=== PATIENT | female | born 1935 | race Caucasian/White ===

== ENCOUNTER 2016-11-30 21:14 | Emergency (ER) | payer MEDICARE, OTHER ==
[2016-11-30 21:19] VITALS: BP 153/58
[2016-11-30] MEDS ORDERED: Sodium Chloride 0.9% 10 ML Syringe FLUSH PRN ×2 (21:27→22:42)
[2016-11-30] MEDS ORDERED: Aspirin 81 MG Tab.Chew PO ONE (21:27)
--- NOTE | 2016-11-30 21:33 | EDM.PDOC ---
ED HPI GENERAL MEDICAL PROBLEM - General Chief Complaint: Chest Pain Stated Complaint: CHEST PAIN/SHORTNESS OF BREATH Time Seen by Provider: 11/30/16 21:21 Source of Information: Reports: Patient History Limitations: Reports: No Limitations - History of Present Illness INITIAL COMMENTS - FREE TEXT/NARRATIVE: The patient presents with chest pain that stated just prior to arrival. The patient was getting ready for bed when she developed some pain in her throat that radiated down into her chest and then to her left axilla. She took a nitro and the pain is better. She was short of breath with it. She did not get diaphoretic. She has a history of coronary artery disease with a stent but no [place]. She has a clogged right carotid artery. She denies any fever, chills or cough. She has no history of a DVT or PE but she has some edema to her left foot and ankle from a tendon injury. She is seeing PT for that. She has no nausea or vomiting. She has no abdominal pain. Onset: Sudden Duration: Minutes: Location: Reports: Neck, Chest, Upper Extremity, Left Quality: Reports: Other (Crushing) Severity: Moderate Improves with: Reports: None Worsens with: Reports: None Associated Symptoms: Reports: Chest Pain, Shortness of Breath. Denies: Fever/ Chills, Nausea/Vomiting Bilateral Chest Pain Score (Numeric/FACES): 2 - Related Data Allergies Allergy/AdvReac Type Severity Reaction Status Date / Time amoxicillin Allergy anaphylacti Verified 11/30/16 21:17 c prednisone AdvReac ulcer Verified 11/30/16 21:17 Home Meds: Home Meds Aspirin [Ecotrin] 81 mg PO DAILY 09/28/14 [History] Cevimeline [Evoxac] 30 mg PO BEDTIME 09/28/14 [History] Famotidine 20 mg PO DAILY 09/28/14 [History] Fenofibrate,Micronized [Fenofibrate] 134 mg PO DAILY 09/28/14 [History] Lisinopril 10 mg PO DAILY 09/28/14 [History] Lutein/Minerals/Vit A,C & E [Ocuvite] 1 tab PO BID 09/28/14 [History] Multivit-Min/FA/Lycopene/Lut [Centrum Silver] 1 tab PO DAILY 09/28/14 [History] Sutton-3 Fatty Acids [Sutton-3] 1,000 mg PO BID 09/28/14 [History] Pramipexole [Mirapex] 0.5 mg PO BEDTIME 09/28/14 [History] buPROPion [Wellbutrin SR] 100 mg PO DAILY 09/28/14 [History] Psyllium with Sucrose [Metamucil] 1 packet PO BID 08/22/15 [History] Rosuvastatin [Crestor] 20 mg PO BEDTIME 08/22/15 [History] Zolpidem [Ambien] 10 mg PO BEDTIME 08/22/15 [History] Albuterol Sulfate [Proair Hfa] 8.5 gm IH Q4HR PRN #1 hfa.aer.ad 08/29/15 [Rx] Lactobac Cmb #3/Fos/Pantethine [Probiotic & Acidophilus] 1 each PO TID #7 capsule 08/29/15 [Rx] Levofloxacin [Levaquin] 750 mg PO DAILY #5 tablet 08/29/15 [Rx] Clindamycin HCl [Cleocin] 300 mg PO TID #60 cap 07/27/16 [Rx] traMADol [Ultram] 50 mg PO Q4HR PRN #50 tablet 07/27/16 [Rx] Past Medical History HEENT History: Reports: Impaired Vision Other HEENT History: Wears glasses Cardiovascular History: Reports: High Cholesterol, Hypertension Gastrointestinal History: Reports: Gastritis, GERD [employer] History: Reports: Musculoskeletal History: Reports: Back Pain, Chronic Other Musculoskeletal History: Scoliosis Neurological History: Reports: TIA Oncologic (Cancer) History: Reports: Malignant Melanoma Dermatologic History: Reports: Melanoma - Past Surgical History Cardiovascular Surgical History: Reports: Coronary Artery Stent GI Surgical History: Reports: Appendectomy, EGD Female Surgical History: Reports: D&C Musculoskeletal Surgical History: Reports: Other (See Below) Other Musculoskeletal Surgeries/Procedures:: Spinal fusion Social & Family History - Family History Cardiac: Reports: Other (See Below) Neurological: Reports: Parkinson's - Tobacco Use Smoking Status *Q: Never Smoker Years of Tobacco use: 50 Month Tobacco Last Used: 2009 Second Hand Smoke Exposure: No - Caffeine Use Caffeine Use: Reports: None - Alcohol Use Days Per Week of Alcohol Use: 7 Number of Drinks Per Day: 2 Total Drinks Per Week: 14 - Recreational Drug Use Recreational Drug Use: No - Living Situation & Occupation Living situation: Reports: with Spouse ED ROS GENERAL - Review of Systems Review Of Systems: See Below Constitutional: Reports: No Symptoms HEENT: Reports: No Symptoms Respiratory: Reports: Shortness of Breath Cardiovascular: Reports: Chest Pain Endocrine: Reports: No Symptoms GI/Abdominal: Reports: No Symptoms : Reports: No Symptoms Musculoskeletal: Reports: No Symptoms Skin: Reports: No Symptoms ED EXAM, GENERAL - Physical Exam Exam: See Below Exam Limited By: No Limitations General Appearance: Alert, No Apparent Distress Ears: Normal External Exam Nose: Normal Inspection Head: Atraumatic, Normocephalic Neck: Normal Inspection Respiratory/Chest: No Respiratory Distress, Lungs Clear, Normal Breath Sounds Cardiovascular: Regular Rate, Rhythm, No Edema, No Murmur GI/Abdominal: Soft, Non-Tender, No Organomegaly, No Mass Back Exam: Normal Inspection Extremities: Normal Inspection EKG INTERPRETATION EKG Date: 11/30/16 Time: 21:16 Rhythm: NSR Rate (beats/min): 86 [place]: normal P-wave: present QRS: normal ST-T: normal QT: normal Course - Vital Signs Last Recorded V/S: Last Vital Signs Temp 97.8 F 11/30/16 21:17 Pulse 87 11/30/16 21:17 Resp 19 11/30/16 21:17 BP 153/58 H 11/30/16 21:17 Pulse Ox 96 11/30/16 21:17 - Orders/Labs/Meds Orders: Active Orders 24 hr Category Date Time Status Cardiac Monitoring [RC] . DIRECTED Care 11/30/16 21:27 Active EKG 12 Lead [EKG Documentation Completion] [RC] STAT Care 11/30/16 23:50 Active EKG Documentation Completion [RC] STAT Care 11/30/16 21:24 Active Oxygen Therapy [RC] PRN Care 11/30/16 21:27 Active Peripheral IV Care [RC] . DIRECTED Care 11/30/16 21:27 Active Ang Chest [CT] Stat Exams 11/30/16 22:08 Taken Chest 1V Frontal [CR] Stat Exams 11/30/16 21:27 Taken VL Duplex Lwr Ext Veins Ltd Lt [US] Stat Exams 11/30/16 22:08 Taken Sodium Chloride 0.9% [Normal Saline] 100 ml Med 11/30/16 22:45 Active IV ASDIRECTED Sodium Chloride 0.9% [Saline Flush] Med 11/30/16 21:27 Active 10 ml FLUSH ASDIRECTED PRN Sodium Chloride 0.9% [Saline Flush] Med 11/30/16 22:42 Active 10 ml FLUSH ONETIME PRN Peripheral IV Insertion Adult [OM.PC] Stat Oth 11/30/16 21:27 Ordered Medication Orders Sodium Chloride (Normal Saline) 100 mls @ 80 mls/hr IV ASDIRECTED JL Last Admin: 11/30/16 22:53 Dose: 80 mls/hr Sodium Chloride (Saline Flush) 10 ml FLUSH ASDIRECTED PRN PRN Reason: Keep Vein Open Last Admin: 11/30/16 21:32 Dose: 10 ml Sodium Chloride (Saline Flush) 10 ml FLUSH ONETIME PRN PRN Reason: IV FLUSH Last Admin: 11/30/16 22:53 Dose: 10 ml Labs: Laboratory Tests 11/30/16 11/30/16 11/30/16 Range/Units 21:25 21:25 21:25 WBC 8.20 (3.98-10.04) K/mm3 RBC 4.39 (3.98-5.22) M/mm3 Hgb 12.8 (11.2-15.7) gm/L Hct 38.7 (34.1-44.9) % MCV 88.2 (79.4-94.8) fl MCH 29.2 (25.6-32.2) pg MCHC 33.1 (32.2-35.5) g/dl RDW Std Deviation 42.9 (36.4-46.3) fL Plt Count 279 (182-369) K/mm3 MPV 9.5 (9.4-12.3) fl Neut % (Auto) 64.0 (34.0-71.1) % Lymph % (Auto) 26.1 (19.3-51.7) % Henry % (Auto) 7.9 (4.7-12.5) % Eos % (Auto) 1.3 (0.7-5.8) Baso % (Auto) 0.5 (0.1-1.2) % Neut # (Auto) 5.24 (1.56-6.13) K/mm3 Lymph # (Auto) 2.14 (1.18-3.74) K/mm3 Henry # (Auto) 0.65 H (0.24-0.36) K/mm3 Eos # (Auto) 0.11 (0.04-0.36) K/mm3 Baso # (Auto) 0.04 (0.01-0.08) K/mm3 D-Dimer, Quantitative 0.76 H (0.19-0.59) mg/L Sodium 138 (136-145) mEq/L Potassium 4.1 (3.5-5.1) mEq/L Chloride 100 (98-107) mEq/L Carbon Dioxide 27 (21-32) mEq/L Anion Gap 15.1 H (5-15) BUN 24 H (7-18) mg/dL Creatinine 1.0 (0.55-1.02) mg/dL Est Cr Clr Drug Dosing TNP Estimated GFR (MDRD) 53 (>60) mL/min BUN/Creatinine Ratio 24.0 H (14-18) Glucose 114 (83-115) mg/dL Calcium 9.4 (8.5-10.1) mg/dL Total Bilirubin 0.5 (0.2-1.0) mg/dL AST 20 (15-37) U/L ALT 31 (14-59) U/L Alkaline Phosphatase 85 (46-116) U/L Troponin I < 0.017 (0.00-0.056) ng/mL Total Protein 7.6 (6.4-8.2) g/dl Albumin 3.9 (3.4-5.0) g/dl Globulin 3.7 gm/dL Albumin/Globulin Ratio 1.1 (1-2) 12/01/16 Range/Units 00:05 WBC (3.98-10.04) K/mm3 RBC (3.98-5.22) M/mm3 Hgb (11.2-15.7) gm/L Hct (34.1-44.9) % MCV (79.4-94.8) fl MCH (25.6-32.2) pg MCHC (32.2-35.5) g/dl RDW Std Deviation (36.4-46.3) fL Plt Count (182-369) K/mm3 MPV (9.4-12.3) fl Neut % (Auto) (34.0-71.1) % Lymph % (Auto) (19.3-51.7) % Henry % (Auto) (4.7-12.5) % Eos % (Auto) (0.7-5.8) Baso % (Auto) (0.1-1.2) % Neut # (Auto) (1.56-6.13) K/mm3 Lymph # (Auto) (1.18-3.74) K/mm3 Henry # (Auto) (0.24-0.36) K/mm3 Eos # (Auto) (0.04-0.36) K/mm3 Baso # (Auto) (0.01-0.08) K/mm3 D-Dimer, Quantitative (0.19-0.59) mg/L Sodium (136-145) mEq/L Potassium (3.5-5.1) mEq/L Chloride (98-107) mEq/L Carbon Dioxide (21-32) mEq/L Anion Gap (5-15) BUN (7-18) mg/dL Creatinine (0.55-1.02) mg/dL Est Cr Clr Drug Dosing Estimated GFR (MDRD) (>60) mL/min BUN/Creatinine Ratio (14-18) Glucose (83-115) mg/dL Calcium (8.5-10.1) mg/dL Total Bilirubin (0.2-1.0) mg/dL AST (15-37) U/L ALT (14-59) U/L Alkaline Phosphatase (46-116) U/L Troponin I < 0.017 (0.00-0.056) ng/mL Total Protein (6.4-8.2) g/dl Albumin (3.4-5.0) g/dl Globulin gm/dL Albumin/Globulin Ratio (1-2) Meds: Medications Generic Name Dose Route Start Last Admin Trade Name Freq PRN Reason Stop Dose Admin Sodium Chloride 100 mls @ 80 mls/hr 11/30/16 22:45 11/30/16 22:53 Normal Saline IV 80 mls/hr ASDIRECTED JL Administration Sodium Chloride 10 ml 11/30/16 21:27 11/30/16 21:32 Saline Flush FLUSH 10 ml ASDIRECTED PRN Administration Keep Vein Open Sodium Chloride 10 ml 11/30/16 22:42 11/30/16 22:53 Saline Flush FLUSH 10 ml ONETIME PRN Administration IV FLUSH Discontinued Medications Generic Name Dose Route Start Last Admin Trade Name Ellen PRN Reason Stop Dose Admin Aspirin 324 mg 11/30/16 21:27 11/30/16 21:31 Aspirin PO 11/30/16 21:28 324 mg ONETIME ONE Administration Iopamidol 100 ml 11/30/16 22:42 11/30/16 22:52 Isovue-370 (76%) IVPUSH 11/30/16 22:43 100 ml ONETIME ONE Administration - Re-Assessments/Exams Free Text/Narrative Re-Assessment/Exam: 11/30/16 21:33 I ordered an IV saline lock, EKG, CXR, labs and aspirin. Her EKG shows a NSR with no acute changes. 12/01/16 00:27 Her CXR looks good. Her CBC was negative. Her D-dimer was elevated at 0.76. Her creatinine was normal at 1.1. Her troponin is negative. Her chest CT shows no evidence of PE, moderate severity emphysematous changes, right upper lobe nodularity is stable, atherosclerotic vascular disease, minimal basilar atelectasis and scoliosis. Her US shoes no evidence of DVT. I did a repeat EKG and it shows no acute changes. I am waiting for the repeat troponin. 12/01/16 00:44 Her repeat troponin is negative. Departure - Departure Time of Disposition: 00:40 Disposition: Home, Self-Care 01 Condition: good Clinical Impression: Atypical chest pain Referrals: Monster Garcia MD [Primary Care Provider] - Forms: ED Department Discharge Additional Instructions: Take your medications as prescribed. Please return if you are worse. - My Orders Last 24 Hours: My Active Orders 11/30/16 21:24 EKG Documentation Completion [RC] STAT 11/30/16 21:27 Cardiac Monitoring [RC] . DIRECTED Oxygen Therapy [RC] PRN Peripheral IV Care [RC] . DIRECTED Chest 1V Frontal [CR] Stat Sodium Chloride 0.9% [Saline Flush] 10 ml FLUSH ASDIRECTED PRN Peripheral IV Insertion Adult [OM.PC] Stat 11/30/16 22:08 Ang Chest [CT] Stat VL Duplex Lwr Ext Veins Ltd Lt [US] Stat 11/30/16 22:42 Sodium Chloride 0.9% [Saline Flush] 10 ml FLUSH ONETIME PRN 11/30/16 22:45 Sodium Chloride 0.9% [Normal Saline] 100 ml IV ASDIRECTED 11/30/16 23:50 EKG 12 Lead [EKG Documentation Completion] [RC] STAT - Assessment/Plan Last 24 Hours: My Active Orders 11/30/16 21:24 EKG Documentation Completion [RC] STAT 11/30/16 21:27 Cardiac Monitoring [RC] . DIRECTED Oxygen Therapy [RC] PRN Peripheral IV Care [RC] . DIRECTED Chest 1V Frontal [CR] Stat Sodium Chloride 0.9% [Saline Flush] 10 ml FLUSH ASDIRECTED PRN Peripheral IV Insertion Adult [OM.PC] Stat 11/30/16 22:08 Ang Chest [CT] Stat VL Duplex Lwr Ext Veins Ltd Lt [US] Stat 11/30/16 22:42 Sodium Chloride 0.9% [Saline Flush] 10 ml FLUSH ONETIME PRN 11/30/16 22:45 Sodium Chloride 0.9% [Normal Saline] 100 ml IV ASDIRECTED 11/30/16 23:50 EKG 12 Lead [EKG Documentation Completion] [RC] STAT
[2016-11-30] MEDS ORDERED: Iopamidol 755 Mg/ML 100 ML Bottle IVPUSH ONE (22:42)
[2016-11-30] MEDS ORDERED: Sodium Chloride 0.9% 100 ML IV SCH (22:45)
--- NOTE | 2016-12-01 09:05 | CT ---
CT chest Technique: Multiple axial sections through the chest are obtained. Intravenous contrast was utilized. Study has been performed as a pulmonary angiogram protocol. Comparison: Previous chest CT also performed as a pulmonary angiogram protocol dated 08/26 15. Findings: Pulmonary arteries are well-opacified. No filling defects are seen to indicate pulmonary embolism. Bilateral breast prosthesis are seen. Left breast prosthesis appears lobulated and likely is partially collapsed which is a stable finding from prior CT exam. Coronary artery calcification is seen. Low-density lesion seen within the right kidney most likely representing a cyst measuring 1.7 cm in size. Atherosclerotic calcification noted within the aorta. No mediastinal or hilar adenopathy is seen. No axillary adenopathy is identified. Diffuse emphysematous change is seen. Focal parenchymal density which appears to have slightly branching component seen within the right middle lobe. Small calcification presumably due to granuloma is present in this area. This finding is partially seen on prior study but appears to be increased in size currently. Given its branching pattern this is most likely due to focal mucoid impaction with mild associated bronchial dilatation. Lungs otherwise are clear. Bone window settings were reviewed which show scattered degenerative change within the spine. Impression: 1. Slight area of increased density within the right middle lobe. As mentioned above, this is most likely due to focal mucoid impaction causing bronchial dilatation. This finding is partially seen but has increased in size on current exam. 2. No findings of pulmonary embolism. 3. Severe emphysematous change. 4. Other incidental findings as described above. Diagnostic code #3 I agree with preliminary report issued by [employer] ([facility] preliminary report dictated on 12/01/16, 12:07 AM Central Time)
--- NOTE | 2016-12-01 09:05 | CR ---
Chest: Portable view of the chest was obtained. Comparison: Previous chest x-ray of 08/28/15. Heart size slightly prominent but accentuated from portable technique. Tortuous thoracic aorta is noted. Lungs are clear. Bony structures are osteopenic. Surgical clips are noted at the base of the neck. Impression: 1. Findings as noted above. Nothing acute is identified on portable chest x-ray. Diagnostic code #2
--- NOTE | 2016-12-01 09:05 | US ---
Left lower extremity deep venous ultrasound: Duplex and color flow imaging was obtained of the left common femoral, greater saphenous, superficial femoral, popliteal, posterior tibial and peroneal veins. Right common femoral vein was also evaluated. Small amount of edema noted within the lower leg soft tissues. Normal phasic flow, augmentation and compression is seen. Impression: 1. Minimal subcutaneous edema. 2. No findings of deep venous thrombosis are seen within the left lower extremity or within the right common femoral vein. Diagnostic code #2 I agree with preliminary report issued by [facility] ([facility] preliminary report dictated on 12/01/16, 12:44 AM Central Time)
== END 2016-12-01 00:55 | disposition home or self-care (01) ==
LOC: JD.ED 21:14
DX: R07.89 Other chest pain (principal); I10 Essential (primary) hypertension; E78.00 Pure hypercholesterolemia, unspecified; K21.9 Gastro-esophageal reflux disease without esophagitis; I25.10 Atherosclerotic heart disease of native coronary artery without angina pectoris; Z86.73 Personal history of transient ischemic attack (TIA), and cerebral infarction without residual deficits; Z95.5 Presence of coronary angioplasty implant and graft; Z90.49 Acquired absence of other specified parts of digestive tract; Z98.1 Arthrodesis status; Z88.1 Allergy status to other antibiotic agents; Z88.8 Allergy status to other drugs, medicaments and biological substances; Z79.82 Long term (current) use of aspirin; Z79.899 Other long term (current) drug therapy; Z85.820 Personal history of malignant melanoma of skin
CPT/HCPCS: 36415; 71010; 71275; 80053; 84484; 85025; 85379; 93005; 93971; 99285; A9270; J7030; J7050; Q9967; 99284

== ENCOUNTER 2018-09-28 03:10 | Inpatient (IN) | payer MEDICARE, OTHER ==
[2018-09-28] MEDS ORDERED: Sodium Chloride 0.9% 10 ML Syringe FLUSH PRN (03:27)
[2018-09-28] MEDS ORDERED: Albuterol/Ipratropium 3.0-0.5 MG/3 ML Neb Soln NEB ONE ×2 (03:28→05:57)
[2018-09-28] MEDS ORDERED: Magnesium Sulfate/Water 2 GM in Premix Bag 1 BAG IV ONE (03:29)
[2018-09-28] MEDS ORDERED: cefTRIAXone 2 GM in Sodium Chloride 0.9% 100 ML IV ONE (03:30)
--- NOTE | 2018-09-28 06:03 | EDM.PDOC ---
ED HPI GENERAL MEDICAL PROBLEM - General Chief Complaint: Respiratory Problem Stated Complaint: SHORT OF BREATH Time Seen by Provider: 09/28/18 03:23 Source of Information: Reports: Patient, Family History Limitations: Reports: No Limitations - History of Present Illness INITIAL COMMENTS - FREE TEXT/NARRATIVE: The patient presents with a cough and shortness of breath. She says she was down in [place] for 2 weeks. She flew home Thursday and on the she started having a slight sore throat. Then on Thursday she started having a cough and her ears were plugged. She then said her eyes hurt. This morning her cough got worse and she was more short of breath. When she arrived here her oxygen saturations were 86% on room air. She has a history of COPD. She still smokes a couple cigarettes per day. She has chest tightness. She has no abdominal pain, nausea or vomiting. She has no pain or edema in her legs. She has no history of DVT or PE. She has a history of a GI bleed when taking prednisone. She does not want any steroids either orally or through the IV. Onset: Gradual Duration: Day(s): Location: Reports: Chest Quality: Reports: Other (Tightness) Severity: Mild Improves with: Reports: None Worsens with: Reports: None Associated Symptoms: Reports: Chest Pain, Cough, Fever/Chills, Shortness of Breath. Denies: Headaches, Nausea/Vomiting - Related Data Allergies Allergy/AdvReac Type Severity Reaction Status Date / Time amoxicillin Allergy anaphylacti Verified 09/28/18 03:23 c prednisone AdvReac ulcer Verified 09/28/18 03:23 Home Meds: Home Meds Aspirin [Ecotrin] 81 mg PO DAILY 09/28/14 [History] Cevimeline [Evoxac] 30 mg PO BEDTIME 09/28/14 [History] Famotidine 20 mg PO DAILY 09/28/14 [History] Fenofibrate,Micronized [Fenofibrate] 134 mg PO DAILY 09/28/14 [History] Lisinopril 10 mg PO DAILY 09/28/14 [History] Lutein/Minerals/Vit A,C & E [Ocuvite] 1 tab PO BID 09/28/14 [History] Multivit-Min/FA/Lycopene/Lut [Centrum Silver] 1 tab PO DAILY 09/28/14 [History] Euclid-3 Fatty Acids [Euclid-3] 1,000 mg PO BID 09/28/14 [History] Pramipexole [Mirapex] 0.5 mg PO BEDTIME 09/28/14 [History] Psyllium with Sucrose [Metamucil] 1 packet PO BID 08/22/15 [History] Albuterol Sulfate [Proair Hfa] 8.5 gm IH Q4HR PRN #1 hfa.aer.ad 08/29/15 [Rx] Rosuvastatin Calcium 40 mg PO DAILY 01/11/18 [History] Zolpidem Tartrate 10 mg PO BEDTIME 01/11/18 [History] Citalopram Hydrobromide [Celexa] 20 mg PO DAILY 09/28/18 [History] Denosumab [Prolia] 1 ml SQ ASDIRECTED 09/28/18 [History] buPROPion [Wellbutrin] 100 mg PO DAILY 09/28/18 [History] hydroCHLOROthiazide [Hydrochlorothiazide] 25 mg PO DAILY 09/28/18 [History] traMADol [Ultram] 50 mg PO ASDIRECTED PRN 09/28/18 [History] Past Medical History HEENT History: Reports: Cataract, Impaired Vision Other HEENT History: Wears glasses Cardiovascular History: Reports: High Cholesterol, Hypertension Respiratory History: Reports: COPD Gastrointestinal History: Reports: Gastritis, GERD [employer]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: Musculoskeletal History: Reports: Back Pain, Chronic Other Musculoskeletal History: Scoliosis Neurological History: Reports: TIA Oncologic (Cancer) History: Reports: Malignant Melanoma Dermatologic History: Reports: Melanoma - Past Surgical History HEENT Surgical History: Reports: Cataract Surgery Cardiovascular Surgical History: Reports: Coronary Artery Stent GI Surgical History: Reports: Appendectomy, EGD Female Surgical History: Reports: D&C Musculoskeletal Surgical History: Reports: Other (See Below) Other Musculoskeletal Surgeries/Procedures:: Spinal fusion Social & Family History - Family History Cardiac: Reports: Other (See Below) Neurological: Reports: Parkinson's - Tobacco Use Smoking Status *Q: Current Every Day Smoker Years of Tobacco use: 50 Packs/Tins Daily: 0.1 - Caffeine Use Caffeine Use: Reports: None - Alcohol Use Days Per Week of Alcohol Use: 7 Number of Drinks Per Day: 1 Total Drinks Per Week: 7 - Recreational Drug Use Recreational Drug Use: No - Living Situation & Occupation Living situation: Reports: with Spouse ED ROS GENERAL - Review of Systems Review Of Systems: See Below Constitutional: Reports: Fever, Chills HEENT: Reports: Ear Pain, Throat Pain Respiratory: Reports: Shortness of Breath, Wheezing, Cough Cardiovascular: Reports: Chest Pain Endocrine: Reports: No Symptoms GI/Abdominal: Reports: No Symptoms : Reports: No Symptoms ED EXAM, GENERAL - Physical Exam Exam: See Below Exam Limited By: No Limitations General Appearance: Alert, No Apparent Distress Ears: Normal External Exam Nose: Normal Inspection Throat/Mouth: Normal Inspection Head: Atraumatic, Normocephalic Neck: Normal Inspection Respiratory/Chest: Decreased Breath Sounds, Wheezing Cardiovascular: Regular Rate, Rhythm, No Edema, No Murmur GI/Abdominal: Soft, Non-Tender, No Organomegaly, No Mass Back Exam: Normal Inspection Extremities: Normal Inspection Neurological: Alert, Oriented, No Motor/Sensory Deficits Course - Vital Signs Last Recorded V/S: Last Vital Signs Temp 98.7 F 09/28/18 03:23 Pulse 96 09/28/18 03:23 Resp 20 09/28/18 03:23 BP 172/74 H 09/28/18 03:23 Pulse Ox 92 L 09/28/18 05:57 - Orders/Labs/Meds Orders: Active Orders 24 hr Category Date Time Status Cardiac Monitoring [RC] . DIRECTED Care 09/28/18 03:28 Active Oxygen Therapy [RC] PRN Care 09/28/18 03:28 Active Peripheral IV Care [RC] . DIRECTED Care 09/28/18 03:28 Active RT Aerosol Therapy [RC] ASDIRECTED Care 09/28/18 03:28 Active RT Aerosol Therapy [RC] ASDIRECTED Care 09/28/18 05:57 Active ABG [BLOOD GAS ARTERIAL] [BG] Stat Lab 09/28/18 06:51 Ordered CULTURE BLOOD [BC] Stat Lab 09/28/18 03:50 Received CULTURE BLOOD [BC] Stat Lab 09/28/18 04:00 Received Sodium Chloride 0.9% [Saline Flush] Med 09/28/18 03:27 Active 10 ml FLUSH ASDIRECTED PRN Blood Culture x2 Reflex Set [OM.PC] Stat Oth 09/28/18 03:28 Ordered Peripheral IV Insertion Adult [OM.PC] Stat Oth 09/28/18 03:27 Ordered Medication Orders Sodium Chloride (Saline Flush) 10 ml FLUSH ASDIRECTED PRN PRN Reason: Keep Vein Open Labs: Laboratory Tests 09/28/18 09/28/18 09/28/18 Range/Units 03:50 03:50 03:50 WBC 7.82 (3.98-10.04) K/mm3 RBC 3.92 L (3.98-5.22) M/mm3 Hgb 11.6 (11.2-15.7) gm/L Hct 35.3 (34.1-44.9) % MCV 90.1 (79.4-94.8) fl MCH 29.6 (25.6-32.2) pg MCHC 32.9 (32.2-35.5) g/dl RDW Std Deviation 40.9 (36.4-46.3) fL Plt Count 204 (182-369) K/mm3 MPV 9.4 (9.4-12.3) fl Neut % (Auto) 83.3 H (34.0-71.1) % Lymph % (Auto) 9.3 L (19.3-51.7) % [place] % (Auto) 6.5 (4.7-12.5) % Eos % (Auto) 0.5 L (0.7-5.8) Baso % (Auto) 0.1 (0.1-1.2) % Neut # (Auto) 6.51 H (1.56-6.13) K/mm3 Lymph # (Auto) 0.73 L (1.18-3.74) K/mm3 [place] # (Auto) 0.51 H (0.24-0.36) K/mm3 Eos # (Auto) 0.04 (0.04-0.36) K/mm3 Baso # (Auto) 0.01 (0.01-0.08) K/mm3 Manual Slide Review Normal smear Sodium 138 (136-145) mEq/L Potassium 3.8 (3.5-5.1) mEq/L Chloride 103 (98-107) mEq/L Carbon Dioxide 25 (21-32) mEq/L Anion Gap 13.8 (5-15) BUN 16 (7-18) mg/dL Creatinine 0.9 (0.55-1.02) mg/dL Est Cr Clr Drug Dosing TNP Estimated GFR (MDRD) > 60 (>60) mL/min BUN/Creatinine Ratio 17.8 (14-18) Glucose 114 (83-115) mg/dL Lactic Acid 0.8 (0.4-2.0) mmol/L Calcium 8.9 (8.5-10.1) mg/dL Magnesium 2.0 (1.8-2.4) mg/dl Total Bilirubin 0.4 (0.2-1.0) mg/dL AST 22 (15-37) U/L ALT 27 (14-59) U/L Alkaline Phosphatase 84 (46-116) U/L Total Protein 6.6 (6.4-8.2) g/dl Albumin 3.3 L (3.4-5.0) g/dl Globulin 3.3 gm/dL Albumin/Globulin Ratio 1.0 (1-2) Meds: Medications Generic Name Dose Route Start Last Admin Trade Name Freq PRN Reason Stop Dose Admin Sodium Chloride 10 ml 09/28/18 03:27 Saline Flush FLUSH ASDIRECTED PRN Keep Vein Open Discontinued Medications Generic Name Dose Route Start Last Admin Trade Name Freq PRN Reason Stop Dose Admin Albuterol/Ipratropium 3 ml 09/28/18 03:28 09/28/18 03:38 Duoneb 3.0-0.5 Mg/3 Ml NEB 09/28/18 03:29 3 ml ONETIME ONE Administration Albuterol/Ipratropium 3 ml 09/28/18 05:57 09/28/18 06:03 Duoneb 3.0-0.5 Mg/3 Ml NEB 09/28/18 05:58 3 ml ONETIME ONE Administration Magnesium Sulfate 2 gm/ Premix 50 mls @ 25 mls/hr 09/28/18 03:29 09/28/18 03: 54 IV 09/28/18 05:28 25 mls/hr ONETIME ONE Administration Ceftriaxone Sodium 2 gm/ 100 mls @ 200 mls/hr 09/28/18 03:30 09/28/18 05:55 Sodium Chloride IV 09/28/18 03:59 200 mls/hr ONETIME ONE Administration - Re-Assessments/Exams Free Text/Narrative Re-Assessment/Exam: 09/28/18 06:03 I ordered an IV saline lock, oxygen, duoneb, magnesium 2 grams IV, CXR, blood cultures, labs and a lactic acid. The patient did not want any steroids either orally or IV. Her CXR shows a right middle lobe infiltrate. Her influenza was negative. Her CBC looks good along with her CMP. Her lactic acid was normal. I ordered rocephin 2 grams IV. 09/28/18 06:05 She feels better but she still has wheezing. I have ordered another duoneb. I will need to admit the patient. 09/28/18 06:55 She wanted an ABG and wanted me to call Joel. I also checked on the patient' s code status and she is DNR/DNI. 09/28/18 07:[address] Manley and he agreed to the admission. Departure - Departure Time of Disposition: 07:15 Disposition: Admitted As Inpatient 68 Condition: Fair Clinical Impression: Hypoxia Pneumonia Qualifiers: Pneumonia type: due to unspecified organism Laterality: right Lung location: middle lobe of lung Qualified Code(s): J18.1 - Lobar pneumonia, unspecified organism COPD (chronic obstructive pulmonary disease) Qualifiers: COPD type: unspecified COPD Qualified Code(s): J44.9 - Chronic obstructive pulmonary disease, unspecified - Discharge Information Referrals: Monster Garcia MD [Primary Care Provider] - Forms: ED Department Discharge - My Orders Last 24 Hours: My Active Orders 09/28/18 03:27 Sodium Chloride 0.9% [Saline Flush] 10 ml FLUSH ASDIRECTED PRN Peripheral IV Insertion Adult [OM.PC] Stat 09/28/18 03:28 Cardiac Monitoring [RC] . DIRECTED Oxygen Therapy [RC] PRN Peripheral IV Care [RC] . DIRECTED RT Aerosol Therapy [RC] ASDIRECTED Blood Culture x2 Reflex Set [OM.PC] Stat 09/28/18 03:50 CULTURE BLOOD [BC] Stat 09/28/18 04:00 CULTURE BLOOD [BC] Stat 09/28/18 05:57 RT Aerosol Therapy [RC] ASDIRECTED 09/28/18 06:51 ABG [BLOOD GAS ARTERIAL] [BG] Stat - Assessment/Plan Last 24 Hours: My Active Orders 09/28/18 03:27 Sodium Chloride 0.9% [Saline Flush] 10 ml FLUSH ASDIRECTED PRN Peripheral IV Insertion Adult [OM.PC] Stat 09/28/18 03:28 Cardiac Monitoring [RC] . DIRECTED Oxygen Therapy [RC] PRN Peripheral IV Care [RC] . DIRECTED RT Aerosol Therapy [RC] ASDIRECTED Blood Culture x2 Reflex Set [OM.PC] Stat 09/28/18 03:50 CULTURE BLOOD [BC] Stat 09/28/18 04:00 CULTURE BLOOD [BC] Stat 09/28/18 05:57 RT Aerosol Therapy [RC] ASDIRECTED 09/28/18 06:51 ABG [BLOOD GAS ARTERIAL] [BG] Stat
--- NOTE | 2018-09-28 07:02 | CR ---
Chest: Portable view of the chest is obtained. Comparison: Prior chest x-ray of 11/30/16. Heart size is normal. Tortuous thoracic aorta is seen. Bronchial wall thickening is noted within the right lower lung. Lungs otherwise are clear. Bony structures are grossly intact. Impression: 1. Bronchial wall thickening within the right lower lung. Findings could be chronic if patient has no acute symptoms. 2. Other portions of the portable chest x-ray showed nothing acute. Diagnostic code #3
[2018-09-28] MEDS ORDERED: cefTRIAXone 2 GM Vial IVPUSH SCH (08:45)
[2018-09-28] MEDS: Albuterol/Ipratropium 3.0-0.5 MG/3 ML Neb Soln NEB SCH ×3 (09:23→21:17)
[2018-09-28] MEDS: methylPREDNISolone Sodium Succinate 40 MG/1 ML SDV IVPUSH SCH ×3 (10:21→20:14)
[2018-09-28] MEDS ORDERED: Albuterol 6.7 GM Inhaler INH PRN (11:21)
[2018-09-28] MEDS: Lisinopril 10 MG Tab PO SCH (12:42)
[2018-09-28] MEDS: Hydrochlorothiazide 25 MG Tab PO SCH (12:42)
[2018-09-28] MEDS ORDERED: MORPHINE PAIN PUMP SCH (13:15)
--- NOTE | 2018-09-28 13:19 | PCM.HP ---
H&P History of Present Illness - General Date of Service: 09/28/18 Admit Problem/Dx: Admission Diagnosis/Problem Admission Diagnosis/Problem Pneumonia Source of Information: Patient - History of Present Illness Initial Comments - Free Text/Narative: Patient presented to the emergency room early this morning complaining of cough and shortness of breath. This patient with a history of COPD started developing a sore throat when flying home from [place] this last weekend. She had spent 2 weeks in [place] with an old friend. She states that on Thursday her ears felt plugged and her eyes felt plugged. Last night and early this morning she became increasingly short of breath and she presented to the emergency room. On arrival in the emergency room her oxygen saturations were 86% on room air and she required O2 via nasal cannula to keep her oxygen saturations above 90. Patient does state that she still smokes 1-3 cigarettes per day. She stopped and regionally in 1999 after 50 years of smoking half pack per day. She stated that if she made it to 82 years of age she would restart smoking because she enjoyed it so much. Patient denies any pain in her legs or edema. She has no history of DVT or pulmonary embolism. In 2013 she was admitted for pneumonia and put on prednisone. She had an upper GI bleed at that time. She was also on Plavix and possibly aspirin at the same time. She takes a baby aspirin now. She is on albuterol high flow nebs and duo nebs at home. In the emergency room she was given 2 treatments of albuterol with good results. Because she refused both by mouth and IV steroids she did not receive any steroids in the emergency room. She did get 2 g of Rocephin in the emergency room. Chest x-ray done in the emergency room was read by radiology as bronchial wall thickening within the right lower lung. Findings could be chronic if patient has no acute symptoms. Other portions of the portable chest x-ray showed nothing acute. - Related Data Allergies/Adverse Reactions: Allergies Allergy/AdvReac Type Severity Reaction Status Date / Time amoxicillin Allergy anaphylacti Verified 09/28/18 09:00 c prednisone AdvReac ulcer Verified 09/28/18 09:00 Home Medications: Home Meds Aspirin [Ecotrin] 81 mg PO DAILY 09/28/14 [History] Cevimeline [Evoxac] 30 mg PO BEDTIME 09/28/14 [History] Famotidine 20 mg PO DAILY 09/28/14 [History] Fenofibrate,Micronized [Fenofibrate] 134 mg PO DAILY 09/28/14 [History] Lisinopril 10 mg PO DAILY 09/28/14 [History] Lutein/Minerals/Vit A,C & E [Ocuvite] 1 tab PO BID 09/28/14 [History] Multivit-Min/FA/Lycopene/Lut [Centrum Silver] 1 tab PO DAILY 09/28/14 [History] Bartlett-3 Fatty Acids [Bartlett-3] 1,000 mg PO BID 09/28/14 [History] Pramipexole [Mirapex] 0.5 mg PO BEDTIME 09/28/14 [History] Psyllium with Sucrose [Metamucil] 1 packet PO BID 08/22/15 [History] Rosuvastatin Calcium 40 mg PO BEDTIME 01/11/18 [History] Zolpidem Tartrate 10 mg PO BEDTIME 01/11/18 [History] Albuterol Sulfate [Proair Hfa] 2 puff IH Q4HR PRN 09/28/18 [History] Celecoxib [CeleBREX] 200 mg PO DAILY 09/28/18 [History] Denosumab [Prolia] 1 ml SQ ASDIRECTED 09/28/18 [History] Morphine Pain Pump 1 applic IMPLANT ASDIRECTED 09/28/18 [History] hydroCHLOROthiazide [Hydrochlorothiazide] 25 mg PO DAILY 09/28/18 [History] traMADol [Ultram] 50 mg PO BID PRN 09/28/18 [History] Past Medical History HEENT History: Reports: Impaired Vision Other HEENT History: Wears glasses; tinnitis Cardiovascular History: Reports: High Cholesterol, Hypertension Respiratory History: Reports: COPD Gastrointestinal History: Reports: GERD 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: Musculoskeletal History: Reports: Arthritis, Back Pain, Chronic Other Musculoskeletal History: Scoliosis Neurological History: Reports: TIA Oncologic (Cancer) History: Reports: Malignant Melanoma Dermatologic History: Reports: Melanoma - Past Surgical History HEENT Surgical History: Reports: Cataract Surgery Cardiovascular Surgical History: Reports: Carotid Stents, Coronary Artery Stent Respiratory Surgical History: Reports: None GI Surgical History: Reports: Appendectomy, Colonoscopy, EGD Female Surgical History: Reports: D&C Neurological Surgical History: Reports: None Musculoskeletal Surgical History: Reports: Other (See Below) Other Musculoskeletal Surgeries/Procedures:: Spinal fusion Dermatological Surgical History: Reports: None Social & Family History - Family History Family Medical History: Noncontributory Cardiac: Reports: Other (See Below) Neurological: Reports: Parkinson's - Tobacco Use Smoking Status *Q: Current Every Day Smoker Years of Tobacco use: 50 Packs/Tins Daily: 0.2 - Caffeine Use Caffeine Use: Reports: Coffee - Alcohol Use Days Per Week of Alcohol Use: 7 Number of Drinks Per Day: 1 Total Drinks Per Week: 7 - Recreational Drug Use Recreational Drug Use: No - Living Situation & Occupation Living situation: Reports: with Spouse H&P Review of Systems - Review of Systems: Review Of Systems: See Below General: Reports: Night Sweats. Denies: Fever, Chills HEENT: Reports: Other (Dry mouth) Pulmonary: Reports: Shortness of Breath, Wheezing, Cough. Denies: Sputum Gastrointestinal: Reports: No Symptoms Genitourinary: Reports: No Symptoms Musculoskeletal: Reports: Back Pain. Denies: Leg Pain Skin: Reports: No Symptoms. Denies: Cyanosis Psychiatric: Reports: No Symptoms. Denies: Confusion, Depression Neurological: Reports: No Symptoms. Denies: Confusion, Dizziness, Headache Hematologic/Lymphatic: Reports: No Symptoms. Denies: Anemia, Easy Bleeding Immunologic: Reports: No Symptoms. Denies: Anaphylaxis (History of hives with amoxicillin and an upper GI bleed with prednisone.) Exam - Exam Exam: See Below - Vital Signs Vital Signs: Last Vital Signs Temp 99.0 F 09/28/18 12:23 Pulse 77 09/28/18 12:23 Resp 20 09/28/18 12:23 BP 138/67 09/28/18 12:42 Pulse Ox 96 09/28/18 12:23 Weight: 187 lb 3.2 oz - Exam Quality Assessment: Supplemental Oxygen General: Alert, Oriented HEENT: Conjunctiva Clear, Mucosa Moist & [place] Neck: Supple, Trachea Midline Lungs: Normal Respiratory Effort, Decreased Breath Sounds, Wheezing Cardiovascular: Regular Rate, Regular Rhythm. No: Systolic Murmur GI/Abdominal Exam: Normal Bowel Sounds, Soft, Non-Tender, No Organomegaly, No Distention, No Abnormal Bruit Back Exam: Normal Inspection Extremities: Normal Inspection, Normal Range of Motion, No Pedal Edema, Normal Capillary Refill Skin: Warm, Dry, Intact Neurological: Cranial Nerves Intact, Sensation Intact Neuro Extensive - Mental Status: Alert, Oriented x3, Normal Mood/Affect, Normal Cognition Neuro Extensive - Motor, Sensory, Reflexes: CN II-XII Intact Psychiatric: Alert, Normal Affect, Normal Mood - Patient Data Lab Results Last 24 hrs: Laboratory Results - last 24 hr 09/28/18 09/28/18 09/28/18 Range/Units 03:50 03:50 03:50 WBC 7.82 (3.98-10.04) K/mm3 RBC 3.92 L (3.98-5.22) M/mm3 Hgb 11.6 (11.2-15.7) gm/L Hct 35.3 (34.1-44.9) % MCV 90.1 (79.4-94.8) fl MCH 29.6 (25.6-32.2) pg MCHC 32.9 (32.2-35.5) g/dl RDW Std Deviation 40.9 (36.4-46.3) fL Plt Count 204 (182-369) K/mm3 MPV 9.4 (9.4-12.3) fl Neut % (Auto) 83.3 H (34.0-71.1) % Lymph % (Auto) 9.3 L (19.3-51.7) % Desha % (Auto) 6.5 (4.7-12.5) % Eos % (Auto) 0.5 L (0.7-5.8) Baso % (Auto) 0.1 (0.1-1.2) % Neut # (Auto) 6.51 H (1.56-6.13) K/mm3 Lymph # (Auto) 0.73 L (1.18-3.74) K/mm3 Desha # (Auto) 0.51 H (0.24-0.36) K/mm3 Eos # (Auto) 0.04 (0.04-0.36) K/mm3 Baso # (Auto) 0.01 (0.01-0.08) K/mm3 Manual Slide Review Normal smear Puncture Site ABG pH (7.35-7.45) ABG pCO2 (35.0-45.0) mmHg ABG pO2 (80.0-100.0) mmHg ABG HCO3 (22.0-26.0) meq/L ABG O2 Saturation (96.0-97.0) % ABG Base Excess (-2-2.0) Jake Test A-a Gradient mmHg O2 Delivery Device Oxygen Flow Rate FiO2 (21.00-100.00) % Sodium 138 (136-145) mEq/L Potassium 3.8 (3.5-5.1) mEq/L Chloride 103 (98-107) mEq/L Carbon Dioxide 25 (21-32) mEq/L Anion Gap 13.8 (5-15) BUN 16 (7-18) mg/dL Creatinine 0.9 (0.55-1.02) mg/dL Est Cr Clr Drug Dosing TNP Estimated GFR (MDRD) > 60 (>60) mL/min BUN/Creatinine Ratio 17.8 (14-18) Glucose 114 (83-115) mg/dL Lactic Acid 0.8 (0.4-2.0) mmol/L Calcium 8.9 (8.5-10.1) mg/dL Magnesium 2.0 (1.8-2.4) mg/dl Total Bilirubin 0.4 (0.2-1.0) mg/dL AST 22 (15-37) U/L ALT 27 (14-59) U/L Alkaline Phosphatase 84 (46-116) U/L Total Protein 6.6 (6.4-8.2) g/dl Albumin 3.3 L (3.4-5.0) g/dl Globulin 3.3 gm/dL Albumin/Globulin Ratio 1.0 (1-2) 09/28/18 Range/Units 07:25 WBC (3.98-10.04) K/mm3 RBC (3.98-5.22) M/mm3 Hgb (11.2-15.7) gm/L Hct (34.1-44.9) % MCV (79.4-94.8) fl MCH (25.6-32.2) pg MCHC (32.2-35.5) g/dl RDW Std Deviation (36.4-46.3) fL Plt Count (182-369) K/mm3 MPV (9.4-12.3) fl Neut % (Auto) (34.0-71.1) % Lymph % (Auto) (19.3-51.7) % Desha % (Auto) (4.7-12.5) % Eos % (Auto) (0.7-5.8) Baso % (Auto) (0.1-1.2) % Neut # (Auto) (1.56-6.13) K/mm3 Lymph # (Auto) (1.18-3.74) K/mm3 Desha # (Auto) (0.24-0.36) K/mm3 Eos # (Auto) (0.04-0.36) K/mm3 Baso # (Auto) (0.01-0.08) K/mm3 Manual Slide Review Puncture Site Lt radial ABG pH 7.45 (7.35-7.45) ABG pCO2 36.5 (35.0-45.0) mmHg ABG pO2 56.0 L (80.0-100.0) mmHg ABG HCO3 24.7 (22.0-26.0) meq/L ABG O2 Saturation 90.9 L (96.0-97.0) % ABG Base Excess 1.3 (-2-2.0) Jake Test Positive A-a Gradient 65 mmHg O2 Delivery Device Nasal cannula Oxygen Flow Rate 1.5 FiO2 26.00 (21.00-100.00) % Sodium (136-145) mEq/L Potassium (3.5-5.1) mEq/L Chloride (98-107) mEq/L Carbon Dioxide (21-32) mEq/L Anion Gap (5-15) BUN (7-18) mg/dL Creatinine (0.55-1.02) mg/dL Est Cr Clr Drug Dosing Estimated GFR (MDRD) (>60) mL/min BUN/Creatinine Ratio (14-18) Glucose (83-115) mg/dL Lactic Acid (0.4-2.0) mmol/L Calcium (8.5-10.1) mg/dL Magnesium (1.8-2.4) mg/dl Total Bilirubin (0.2-1.0) mg/dL AST (15-37) U/L ALT (14-59) U/L Alkaline Phosphatase (46-116) U/L Total Protein (6.4-8.2) g/dl Albumin (3.4-5.0) g/dl Globulin gm/dL Albumin/Globulin Ratio (1-2) Result Diagrams: 09/28/18 03:50 09/28/18 03:50 Michael Results Last 24 hrs: Microbiology 09/28/18 03:53 Influenza Type A Antigen Screen - Final Nasopharyngeal Swab NEGATIVE INFLUENZA A VIRUS AG Influenza Type B Antigen Screen - Final NEGATIVE INFLUENZA B VIRUS AG Imaging Impressions Last 24 hrs: Chest x-ray showed right lower lobe infiltrate. - Problem List (1) Pneumonia SNOMED Code(s): 970611740 ICD Code: J18.9 - PNEUMONIA, UNSPECIFIED ORGANISM Status: Acute Current Visit: Yes Qualifiers: Pneumonia type: due to unspecified organism Laterality: right Lung location: middle lobe of lung Qualified Code(s): J18.1 - Lobar pneumonia, unspecified organism (2) COPD (chronic obstructive pulmonary disease) SNOMED Code(s): 54413143 ICD Code: J44.9 - CHRONIC OBSTRUCTIVE PULMONARY DISEASE, UNSPECIFIED Status : Acute Current Visit: Yes Qualifiers: COPD type: unspecified COPD Qualified Code(s): J44.9 - Chronic obstructive pulmonary disease, unspecified (3) Hypoxia SNOMED Code(s): 039879018 ICD Code: R09.02 - HYPOXEMIA Status: Acute Current Visit: Yes (4) Chronic back pain SNOMED Code(s): 801294241 ICD Code: M54.9 - DORSALGIA, UNSPECIFIED; G89.29 - OTHER CHRONIC PAIN Status: Chronic Priority: Medium Current Visit: No Onset Date: 08/22/15 Problem Details: Stable (5) Hypertension SNOMED Code(s): 00020917 ICD Code: I10 - ESSENTIAL (PRIMARY) HYPERTENSION Status: Chronic Priority : Medium Current Visit: No Onset Date: 08/22/15 Problem Details: With variation BP meds were adjusted Qualifiers: Hypertension type: essential hypertension Qualified Code(s): I10 - Essential (primary) hypertension Problem List Initiated/Reviewed/Updated: Yes Orders Last 24hrs: Active Orders 24 hr Category Date Time Status Patient Status [ADT] Routine ADT 09/28/18 07:19 Active Antiembolic Devices [RC] PER UNIT ROUTINE Care 09/28/18 13:08 Active Cardiac Monitoring [RC] . DIRECTED Care 09/28/18 03:28 Active IS (RT) [RT Incentive Spirometry] [RC] Q1HWA Care 09/28/18 13:12 Active Oxygen Therapy [RC] PRN Care 09/28/18 03:28 Active RT Aerosol Therapy [RC] ASDIRECTED Care 09/28/18 08:42 Active RT Chest Physiotherapy [RC] ASDIRECTED Care 09/28/18 13:12 Active Up With Assistance [RC] ASDIRECTED Care 09/28/18 13:08 Active Regular Diet [DIET] Diet 09/28/18 Breakfast Active CBC WITH AUTO DIFF [HEME] AM Lab 09/29/18 05:11 Ordered CMP [COMPREHENSIVE METABOLIC PN,CMP] [CHEM] AM Lab 09/29/18 05:11 Ordered CULTURE BLOOD [BC] Stat Lab 09/28/18 03:50 Received CULTURE BLOOD [BC] Stat Lab 09/28/18 04:00 Received MAGNESIUM [CHEM] AM Lab 09/29/18 05:11 Ordered PHOSPHORUS [CHEM] AM Lab 09/29/18 05:11 Ordered Albuterol [Proventil HFA] Med 09/28/18 11:21 Active 0 gm INH Q4H PRN Albuterol [Proventil Neb Soln] Med 09/28/18 08:42 Active 2.5 mg NEB Q4HRRT PRN Albuterol/Ipratropium [DuoNeb 3.0-0.5 MG/3 ML] Med 09/28/18 09:00 Active 3 ml NEB Q6HRRT Aspirin [Halfprin] Med 09/29/18 09:00 Active 81 mg PO DAILY Lisinopril [Prinivil] Med 09/28/18 11:30 Active 10 mg PO DAILY Morphine Pain Pump Med 09/28/18 13:15 Ordered 1 applic IMPLANT ASDIRECTED Pantoprazole [ProTONIX] Med 09/28/18 06:00 Ordered 40 mg PO ACBREAKFAST Pramipexole [Mirapex] Med 09/28/18 21:00 Active 0.5 mg PO BEDTIME Psyllium Husk/Aspartame [Metamucil Sugar Free] Med 09/28/18 21:00 Active 1 packet PO BID Rosuvastatin [Crestor] Med 09/28/18 21:00 Active 40 mg PO BEDTIME Sodium Chloride 0.9% [Saline Flush] Med 09/28/18 03:27 Active 10 ml FLUSH ASDIRECTED PRN Zolpidem [Ambien] Med 09/28/18 13:08 Ordered 10 mg PO ONETIME PRN buPROPion Med 09/28/18 11:30 Pending 100 mg PO DAILY cefTRIAXone [Rocephin] 1 gm Med 09/29/18 06:00 Active Sodium Chloride 0.9% [Normal Saline] 100 ml IV Q24H hydroCHLOROthiazide Med 09/28/18 11:30 Active 25 mg PO DAILY methylPREDNISolone Sod Succ [Solu-MEDROL] Med 09/28/18 09:00 Active 40 mg IVPUSH Q6H Blood Culture x2 Reflex Set [OM.PC] Stat Oth 09/28/18 03:28 Ordered Peripheral IV Insertion Adult [OM.PC] Stat Oth 09/28/18 03:27 Ordered SCD [Sequential Compression Device] [OM.PC] Routine Oth 09/28/18 13:08 Ordered Code Status [Resuscitation Status] Routine Resus Stat 09/28/18 10:28 Ordered Medication Orders Albuterol (Proventil Neb Soln) 2.5 mg NEB Q4HRRT PRN PRN Reason: Shortness of Breath Albuterol (Proventil Hfa) 0 gm INH Q4H PRN PRN Reason: Shortness of Breath Albuterol/Ipratropium (Duoneb 3.0-0.5 Mg/3 Ml) 3 ml NEB Q6HRRT [facility] Last Admin: 09/28/18 09:23 Dose: 3 ml Aspirin (Halfprin) 81 mg PO DAILY [facility] Hydrochlorothiazide (Hydrochlorothiazide) 25 mg PO DAILY [facility] Last Admin: 09/28/18 12:42 Dose: 25 mg Ceftriaxone Sodium 1 gm/ (Sodium Chloride) 100 mls @ 200 mls/hr IV Q24H [facility] Lisinopril (Prinivil) 10 mg PO DAILY [facility] Last Admin: 09/28/18 12:42 Dose: 10 mg Methylprednisolone Sodium Succinate (Solu-Medrol) 40 mg IVPUSH Q6H [facility] Last Admin: 09/28/18 10:21 Dose: 40 mg Non-Formulary Medication (Bupropion) 100 mg PO DAILY [facility] Non-Formulary Medication (Morphine Pain Pump) 1 applic IMPLANT ASDIRECTED [facility] Pantoprazole Sodium (Protonix) 40 mg PO ACBREAKFAST [facility] Pramipexole Dihydrochloride (Mirapex) 0.5 mg PO BEDTIME [facility] Psyllium Husk (Metamucil Sugar Free) 1 packet PO BID [facility] Rosuvastatin Calcium (Crestor) 40 mg PO BEDTIME JL Sodium Chloride (Saline Flush) 10 ml FLUSH ASDIRECTED PRN PRN Reason: Keep Vein Open Zolpidem Tartrate (Ambien) 10 mg PO ONETIME PRN PRN Reason: Insomnia Assessment/Plan Comment:: Right lower lobe pneumonia * Patient given Rocephin 2 g IV in the emergency room. Start Rocephin 1 g IV every 24 hours next dose. * Start azithromycin 500 mg now then 250 mg a day 4 days. * Recheck CBC in the morning. Hypoxia * Keep on nasal cannula O2 to keep oxygen between 90 and 95%. COPD * Encourage smoking cessation. * Albuterol nebulizer every 4 hours when necessary. * DuoNeb nebs every 6 hours. * Discussed with patient the benefits of steroids in her condition. She agreed to IV steroids. I started Solu-Medrol 40 mg every 6 hours. Hypertension * Restart home meds. Stress ulcer prophylaxis with Protonix 40 mg a day given her history of GI bleed. VTE prophylaxis will be with SCDs. I discussed the benefit of venous thromboembolism prevention versus the risk bleeding with anticoagulation. Patient would prefer mechanical device over anticoagulation. CODE STATUS: DO NOT INTUBATE, DO NOT RESUSCITATE Discharge planning: Expect discharge in 3 days. Chronic medical problems include chronic low back pain, hypertension, hyperlipidemia, GERD.
[2018-09-28] MEDS ORDERED: Azithromycin 250 MG Tab PO SCH (13:45)
[2018-09-28] MEDS ORDERED: buPROPion 150 MG Tab.ER PO SCH (14:30)
[2018-09-28] MEDS: Psyllium Husk Powder Sugar Free 3.4 GM Packet PO SCH (20:14)
[2018-09-28] MEDS: Rosuvastatin 10 MG Tab PO SCH (20:14)
[2018-09-28] MEDS: Pramipexole 0.5 MG Tab PO SCH (20:14)
[2018-09-28] MEDS ORDERED: Zolpidem 10 MG Tab PO PRN (21:00)
[2018-09-29] MEDS: Albuterol/Ipratropium 3.0-0.5 MG/3 ML Neb Soln NEB SCH ×4 (02:28→20:31)
[2018-09-29] MEDS: methylPREDNISolone Sodium Succinate 40 MG/1 ML SDV IVPUSH SCH ×4 (03:09→21:26)
[2018-09-29] MEDS: Pantoprazole 40 MG Tab.CR PO SCH (05:52)
[2018-09-29] MEDS: cefTRIAXone 1 GM in Sodium Chloride 0.9% 100 ML IV SCH (05:53)
[2018-09-29] MEDS ORDERED: cefTRIAXone 1 GM in Sodium Chloride 0.9% 100 ML IV SCH (06:00)
[2018-09-29] MEDS: Aspirin 81 MG Tab.EC PO SCH (08:23)
[2018-09-29] MEDS: Lisinopril 10 MG Tab PO SCH (08:23)
[2018-09-29] MEDS: buPROPion 150 MG Tab.ER PO SCH (08:23)
[2018-09-29] MEDS: Psyllium Husk Powder Sugar Free 3.4 GM Packet PO SCH ×2 (08:24→21:27)
[2018-09-29] MEDS: Hydrochlorothiazide 25 MG Tab PO SCH (08:24)
--- NOTE | 2018-09-29 12:59 | PCM.PN ---
- General Info Date of Service: 09/29/18 Admission Dx/Problem (Free Text): Admission Diagnosis/Problem Admission Diagnosis/Problem Pneumonia Subjective Update: Patient states that she is improving. She was admitted yesterday, September 28, 2018 , and started on Rocephin, azithromycin, and Solu-Medrol. Oxygen requirement has dropped from 2 L to 1 L. She denies any fevers overnight and is generally feeling better. She continues to have cough that is productive without shortness of breath. Functional Status: Reports: Pain Controlled - Review of Systems General: Reports: No Symptoms. Denies: Fever, Weakness HEENT: Reports: No Symptoms Pulmonary: Reports: Cough, Sputum. Denies: Shortness of Breath, Pleuritic Chest Pain, Hemoptysis Cardiovascular: Reports: No Symptoms. Denies: Chest Pain, Palpitations Gastrointestinal: Reports: No Symptoms. Denies: Abdominal Pain, Constipation, Diarrhea Neurological: Denies: Confusion, Dizziness Psychiatric: Denies: Depression - Patient Data Vitals - Most Recent: Last Vital Signs Temp 98.4 F 09/29/18 07:48 Pulse 80 09/29/18 11:59 Resp 15 09/29/18 11:59 BP 129/48 L 09/29/18 11:59 Pulse Ox 93 L 09/29/18 11:59 Weight - Most Recent: 183 lb 11.2 oz I&O - Last 24 Hours: Intake & Output 09/28/18 09/29/18 09/29/18 22:59 06:59 14:59 Intake Total 1300 400 180 Output Total 250 Balance 1300 150 180 Lab Results Last 24 Hours: Laboratory Results - last 24 hr 09/29/18 09/29/18 Range/Units 06:20 06:20 WBC 7.89 (3.98-10.04) K/mm3 RBC 3.66 L (3.98-5.22) M/mm3 Hgb 10.8 L (11.2-15.7) gm/L Hct 33.1 L (34.1-44.9) % MCV 90.4 (79.4-94.8) fl MCH 29.5 (25.6-32.2) pg MCHC 32.6 (32.2-35.5) g/dl RDW Std Deviation 41.1 (36.4-46.3) fL Plt Count 216 (182-369) K/mm3 MPV 9.5 (9.4-12.3) fl Neut % (Auto) 91.4 H (34.0-71.1) % Lymph % (Auto) 6.1 L (19.3-51.7) % [place] % (Auto) 2.2 L (4.7-12.5) % Eos % (Auto) 0 L (0.7-5.8) Baso % (Auto) 0.0 L (0.1-1.2) % Neut # (Auto) 7.22 H (1.56-6.13) K/mm3 Lymph # (Auto) 0.48 L (1.18-3.74) K/mm3 [place] # (Auto) 0.17 L (0.24-0.36) K/mm3 Eos # (Auto) 0.00 L (0.04-0.36) K/mm3 Baso # (Auto) 0.00 L (0.01-0.08) K/mm3 Manual Slide Review Normal smear Sodium 135 L (136-145) mEq/L Potassium 4.1 (3.5-5.1) mEq/L Chloride 101 (98-107) mEq/L Carbon Dioxide 24 (21-32) mEq/L Anion Gap 14.1 (5-15) BUN 24 H (7-18) mg/dL Creatinine 1.0 (0.55-1.02) mg/dL Est Cr Clr Drug Dosing 41.30 mL/min Estimated GFR (MDRD) 53 (>60) mL/min BUN/Creatinine Ratio 24.0 H (14-18) Glucose 157 H (83-115) mg/dL Calcium 8.9 (8.5-10.1) mg/dL Phosphorus 4.0 (2.6-4.7) mg/dL Magnesium 2.3 (1.8-2.4) mg/dl Total Bilirubin 0.3 (0.2-1.0) mg/dL AST 16 (15-37) U/L ALT 23 (14-59) U/L Alkaline Phosphatase 80 (46-116) U/L Total Protein 6.9 (6.4-8.2) g/dl Albumin 3.2 L (3.4-5.0) g/dl Globulin 3.7 gm/dL Albumin/Globulin Ratio 0.9 L (1-2) Michael Results Last 24 Hours: Microbiology 09/28/18 04:00 Aerobic Blood Culture - Preliminary Blood - Venous - Lab Draw NO GROWTH AFTER 1 DAY Anaerobic Blood Culture - Preliminary NO GROWTH AFTER 1 DAY 09/28/18 03:50 Aerobic Blood Culture - Preliminary Blood - Venous NO GROWTH AFTER 1 DAY Anaerobic Blood Culture - Preliminary NO GROWTH AFTER 1 DAY Med Orders - Current: Current Medications Albuterol (Proventil Neb Soln) 2.5 mg NEB Q4HRRT PRN PRN Reason: Shortness of Breath Albuterol (Proventil Hfa) 0 gm INH Q4H PRN PRN Reason: Shortness of Breath Albuterol/Ipratropium (Duoneb 3.0-0.5 Mg/3 Ml) 3 ml NEB Q6HRRT [facility] Last Admin: 09/29/18 08:24 Dose: 3 ml Aspirin (Halfprin) 81 mg PO DAILY [facility] Last Admin: 09/29/18 08:23 Dose: 81 mg Azithromycin (Zithromax) 250 mg PO Q24H [facility] Bupropion HCl (Wellbutrin Xl) 150 mg PO DAILY [facility] Last Admin: 09/29/18 08:23 Dose: 150 mg Hydrochlorothiazide (Hydrochlorothiazide) 25 mg PO DAILY [facility] Last Admin: 09/29/18 08:24 Dose: 25 mg Ceftriaxone Sodium 1 gm/ (Sodium Chloride) 100 mls @ 200 mls/hr IV Q24H [facility] Last Admin: 09/29/18 05:53 Dose: 200 mls/hr Lisinopril (Prinivil) 10 mg PO DAILY [facility] Last Admin: 09/29/18 08:23 Dose: 10 mg Methylprednisolone Sodium Succinate (Solu-Medrol) 40 mg IVPUSH Q6H [facility] Last Admin: 09/29/18 08:24 Dose: 40 mg Pantoprazole Sodium (Protonix) 40 mg PO ACBREAKFAST [facility] Last Admin: 09/29/18 05:52 Dose: 40 mg Morphine Pain Pump * ( Patients Own Med) 0 each .XX ASDIRECTED [facility] Pramipexole Dihydrochloride (Mirapex) 0.5 mg PO BEDTIME [facility] Last Admin: 09/28/18 20:14 Dose: 0.5 mg Psyllium Husk (Metamucil Sugar Free) 1 packet PO BID [facility] Last Admin: 09/29/18 08:24 Dose: Not Given Rosuvastatin Calcium (Crestor) 40 mg PO BEDTIME [facility] Last Admin: 09/28/18 20:14 Dose: 40 mg Sodium Chloride (Saline Flush) 10 ml FLUSH ASDIRECTED PRN PRN Reason: Keep Vein Open Zolpidem Tartrate (Ambien) 10 mg PO ONETIME PRN PRN Reason: Insomnia Discontinued Medications Albuterol/Ipratropium (Duoneb 3.0-0.5 Mg/3 Ml) 3 ml NEB ONETIME ONE Stop: 09/28/18 03:29 Last Admin: 09/28/18 03:38 Dose: 3 ml Albuterol/Ipratropium (Duoneb 3.0-0.5 Mg/3 Ml) 3 ml NEB ONETIME ONE Stop: 09/28/18 05:58 Last Admin: 09/28/18 06:03 Dose: 3 ml Azithromycin (Zithromax) 500 mg PO DAILY [facility] Stop: 09/28/18 13:46 Last Admin: 09/28/18 15:19 Dose: 500 mg Bupropion HCl (Wellbutrin Xl) 150 mg PO DAILY [facility] Last Admin: 09/28/18 15:19 Dose: 150 mg Ceftriaxone Sodium (Rocephin) 1 gm IVPUSH Q24H [facility] Last Admin: 09/28/18 10:16 Dose: Not Given Magnesium Sulfate 2 gm/ Premix 50 mls @ 25 mls/hr IV ONETIME ONE Stop: 09/28/18 05:28 Last Admin: 09/28/18 03:54 Dose: 25 mls/hr Ceftriaxone Sodium 2 gm/ (Sodium Chloride) 100 mls @ 200 mls/hr IV ONETIME ONE Stop: 09/28/18 03:59 Last Admin: 09/28/18 05:55 Dose: 200 mls/hr Ceftriaxone Sodium 1 gm/ (Sodium Chloride) 100 mls @ 200 mls/hr IV Q24H [facility] - Exam Quality Assessment: Supplemental Oxygen General: Alert, Oriented HEENT: Pupils Equal Neck: Supple Lungs: Normal Respiratory Effort, Rhonchi (Right lower lobe), Wheezing Cardiovascular: Regular Rate, Regular Rhythm GI/Abdominal Exam: Normal Bowel Sounds, Soft, Non-Tender, No Organomegaly, No Distention Extremities: Normal Inspection, No Pedal Edema Skin: Warm, Dry, Intact Psy/Mental Status: Alert, Normal Affect, Normal Mood - Problem List & Annotations (1) Pneumonia SNOMED Code(s): 799851656 Code(s): J18.9 - PNEUMONIA, UNSPECIFIED ORGANISM Status: Acute Current Visit: Yes Qualifiers: Pneumonia type: due to unspecified organism Laterality: right Lung location: middle lobe of lung Qualified Code(s): J18.1 - Lobar pneumonia, unspecified organism (2) COPD (chronic obstructive pulmonary disease) SNOMED Code(s): 58382862 Code(s): J44.9 - CHRONIC OBSTRUCTIVE PULMONARY DISEASE, UNSPECIFIED Status : Acute Current Visit: Yes Qualifiers: COPD type: unspecified COPD Qualified Code(s): J44.9 - Chronic obstructive pulmonary disease, unspecified (3) Hypoxia SNOMED Code(s): 052989683 Code(s): R09.02 - HYPOXEMIA Status: Acute Current Visit: Yes (4) Chronic back pain SNOMED Code(s): 627598733 Code(s): M54.9 - DORSALGIA, UNSPECIFIED; G89.29 - OTHER CHRONIC PAIN Status : Chronic Priority: Medium Current Visit: No Onset Date: 08/22/15 Annotation/Comment:: Stable (5) Hypertension SNOMED Code(s): 22496302 Code(s): I10 - ESSENTIAL (PRIMARY) HYPERTENSION Status: Chronic Priority : Medium Current Visit: No Onset Date: 08/22/15 Qualifiers: Hypertension type: essential hypertension Qualified Code(s): I10 - Essential (primary) hypertension Annotation/Comment:: With variation BP meds were adjusted - Problem List Review Problem List Initiated/Reviewed/Updated: Yes - My Orders Last 24 Hours: My Active Orders 09/28/18 13:08 Antiembolic Devices [RC] BID Up With Assistance [RC] ASDIRECTED SCD [Sequential Compression Device] [OM.PC] Routine 09/28/18 13:12 IS (RT) [RT Incentive Spirometry] [RC] Q1HWA RT Chest Physiotherapy [RC] ASDIRECTED 09/28/18 13:15 Patient's Own Medication [Ptom] 0 each .XX ASDIRECTED 09/28/18 21:00 Pramipexole [Mirapex] 0.5 mg PO BEDTIME Psyllium Husk/Aspartame [Metamucil Sugar Free] 1 packet PO BID Rosuvastatin [Crestor] 40 mg PO BEDTIME Zolpidem [Ambien] 10 mg PO ONETIME PRN 09/29/18 06:00 Pantoprazole [ProTONIX] 40 mg PO ACBREAKFAST cefTRIAXone [Rocephin] 1 gm Sodium Chloride 0.9% [Normal Saline] 100 ml IV Q24H 09/29/18 08:30 RESPIRATORY PANEL Routine 09/29/18 09:00 Aspirin [Halfprin] 81 mg PO DAILY buPROPion [Wellbutrin XL] 150 mg PO DAILY 09/29/18 10:35 OT Evaluation and Treatment [CONS] Routine PT Evaluation and Treatment [CONS] Routine 09/29/18 15:00 Azithromycin [Zithromax] 250 mg PO Q24H - Plan Plan:: Right lower lobe pneumonia * Continue Rocephin 1 g IV every 24 hours next dose. * Continue azithromycin 500 mg now then 250 mg a day 4 days. * Recheck CBC in the morning. Hypoxia * Keep on nasal cannula O2 to keep oxygen between 90 and 95%. COPD * Encourage smoking cessation. * Albuterol nebulizer every 4 hours when necessary. * DuoNeb nebs every 6 hours. * Continue Solu-Medrol 40 mg every 6 hours. * Incentive spirometry and flutter value at bedside. Pt. will alternate Q1 hour Hypertension * Continue home meds. Consult PT/OT. Pt. understands that she will do better the more active she is. Stress ulcer prophylaxis with Protonix 40 mg a day given her history of GI bleed. VTE prophylaxis will be with SCDs. I discussed the benefit of venous thromboembolism prevention versus the risk bleeding with anticoagulation. Patient would prefer mechanical device over anticoagulation. CODE STATUS: DO NOT INTUBATE, DO NOT RESUSCITATE Discharge planning: Expect discharge in 2 days. Chronic medical problems include chronic low back pain, hypertension, hyperlipidemia, GERD. All stable
[2018-09-29] MEDS: Azithromycin 250 MG Tab PO SCH (15:49)
[2018-09-29] MEDS ORDERED: Temazepam 15 MG Cap PO ONE (21:11)
[2018-09-29] MEDS: Rosuvastatin 10 MG Tab PO SCH (21:26)
[2018-09-29] MEDS: Pramipexole 0.5 MG Tab PO SCH (21:26)
[2018-09-30] MEDS: methylPREDNISolone Sodium Succinate 40 MG/1 ML SDV IVPUSH SCH ×4 (03:16→20:42)
[2018-09-30] MEDS: Albuterol/Ipratropium 3.0-0.5 MG/3 ML Neb Soln NEB SCH ×4 (03:25→20:59)
[2018-09-30] MEDS: cefTRIAXone 1 GM in Sodium Chloride 0.9% 100 ML IV SCH (05:24)
[2018-09-30] MEDS: Pantoprazole 40 MG Tab.CR PO SCH (05:24)
[2018-09-30] MEDS ORDERED: Codeine/guaiFENesin 100-10 MG/5 ML Syrup 5 ML Cup PO PRN (07:28)
[2018-09-30] MEDS: Aspirin 81 MG Tab.EC PO SCH (09:12)
[2018-09-30] MEDS: Hydrochlorothiazide 25 MG Tab PO SCH (09:13)
[2018-09-30] MEDS: Psyllium Husk Powder Sugar Free 3.4 GM Packet PO SCH ×2 (09:13→20:42)
[2018-09-30] MEDS: Benzonatate 100 MG Cap PO SCH ×3 (09:14→20:42)
[2018-09-30] MEDS: Lisinopril 10 MG Tab PO SCH (09:14)
[2018-09-30] MEDS: buPROPion 150 MG Tab.ER PO SCH (09:15)
--- NOTE | 2018-09-30 09:15 | CR ---
Chest: Portable view of the chest was obtained. Comparison: Prior chest x-ray of 09/28/18. Heart size is normal. Tortuous thoracic aorta is seen. Surgical clips are seen within the base of the left neck. Lungs are clear with no acute parenchymal change. Scoliosis is noted within the spine. Impression: 1. Incidental findings. Nothing acute is seen. Diagnostic code #2
--- NOTE | 2018-09-30 09:24 | PCM.PN ---
- General Info Date of Service: 09/30/18 Admission Dx/Problem (Free Text): Admission Diagnosis/Problem Admission Diagnosis/Problem Pneumonia Subjective Update: 09/29/2018 Patient continues to improve symptomatically, but appears more wheezy this morning per RT. He viral panel came back positive for Rhinovirus. She missed the 0300 breathing treatment, which could account for the worsening signs this AM. She is currently off O2, but RT wants to put her back on for comfort. Cough is still a significant issue. She denies any fever or chills. 09/29/2018 Patient states that she is improving. She was admitted yesterday, September 28, 2018 , and started on Rocephin, azithromycin, and Solu-Medrol. Oxygen requirement has dropped from 2 L to 1 L. She denies any fevers overnight and is generally feeling better. She continues to have cough that is productive without shortness of breath. - Review of Systems General: Reports: No Symptoms. Denies: Fever, Weakness HEENT: Reports: Sore Throat Pulmonary: Reports: Cough, Sputum. Denies: Shortness of Breath Cardiovascular: Reports: No Symptoms. Denies: Chest Pain, Palpitations, Dyspnea on Exertion Gastrointestinal: Reports: No Symptoms. Denies: Abdominal Pain, Constipation - Patient Data Vitals - Most Recent: Last Vital Signs Temp 98.1 F 09/29/18 21:24 Pulse 77 09/30/18 03:20 Resp 16 09/30/18 03:19 BP 127/96 H 09/30/18 09:14 Pulse Ox 93 L 09/30/18 03:20 Weight - Most Recent: 185 lb 1.6 oz I&O - Last 24 Hours: Intake & Output 09/29/18 09/30/18 09/30/18 22:59 06:59 14:59 Intake Total 380 700 Output Total 850 Balance 380 -150 Lab Results Last 24 Hours: Laboratory Results - last 24 hr 09/29/18 09/29/18 09/30/18 Range/Units 06:20 08:30 05:47 WBC 10.10 H (3.98-10.04) K/mm3 RBC 3.57 L (3.98-5.22) M/mm3 Hgb 10.6 L (11.2-15.7) gm/L Hct 32.4 L (34.1-44.9) % MCV 90.8 (79.4-94.8) fl MCH 29.7 (25.6-32.2) pg MCHC 32.7 (32.2-35.5) g/dl RDW Std Deviation 42.0 (36.4-46.3) fL Plt Count 234 (182-369) K/mm3 MPV 10.0 (9.4-12.3) fl Neut % (Auto) 90.7 H (34.0-71.1) % Lymph % (Auto) 6.4 L (19.3-51.7) % [place] % (Auto) 2.6 L (4.7-12.5) % Eos % (Auto) 0 L (0.7-5.8) Baso % (Auto) 0.0 L (0.1-1.2) % Neut # (Auto) 9.16 H (1.56-6.13) K/mm3 Lymph # (Auto) 0.65 L (1.18-3.74) K/mm3 [place] # (Auto) 0.26 (0.24-0.36) K/mm3 Eos # (Auto) 0.00 L (0.04-0.36) K/mm3 Baso # (Auto) 0.00 L (0.01-0.08) K/mm3 Manual Slide Review Normal smear Abnormal smear Sodium (136-145) mEq/L Potassium (3.5-5.1) mEq/L Chloride (98-107) mEq/L Carbon Dioxide (21-32) mEq/L Anion Gap (5-15) BUN (7-18) mg/dL Creatinine (0.55-1.02) mg/dL Est Cr Clr Drug Dosing mL/min Estimated GFR (MDRD) (>60) mL/min BUN/Creatinine Ratio (14-18) Glucose (83-115) mg/dL Calcium (8.5-10.1) mg/dL Total Bilirubin (0.2-1.0) mg/dL AST (15-37) U/L ALT (14-59) U/L Alkaline Phosphatase (46-116) U/L C-Reactive Protein (<1.0) mg/dL Total Protein (6.4-8.2) g/dl Albumin (3.4-5.0) g/dl Globulin gm/dL Albumin/Globulin Ratio (1-2) Adenovirus (PCR) Not detected (Not Detected) B. pertussis DNA (PCR) Not detected (Not Detected) B.parapertussis DNA PCR Not detected (Not Detected) C. pneumoniae DNA (PCR) Not detected (Not Detected) Coronavirus (PCR) Not detected (Not Detected) Human Metapneumovir PCR Not detected (Not Detected) Influenza A (RT-PCR) Not detected (Not Detected) Influenza B (RT-PCR) Not detected (Not Detected) M. pneumoniae (PCR) Not detected (Not Detected) Parainfluen 1,2,3,4 PCR Not detected (Not Detected) RSV (PCR) Not detected (Not Detected) Entero/Rhino (PCR) Detected H (Not Detected) 09/30/18 09/30/18 Range/Units 05:47 05:47 WBC (3.98-10.04) K/mm3 RBC (3.98-5.22) M/mm3 Hgb (11.2-15.7) gm/L Hct (34.1-44.9) % MCV (79.4-94.8) fl MCH (25.6-32.2) pg MCHC (32.2-35.5) g/dl RDW Std Deviation (36.4-46.3) fL Plt Count (182-369) K/mm3 MPV (9.4-12.3) fl Neut % (Auto) (34.0-71.1) % Lymph % (Auto) (19.3-51.7) % [place] % (Auto) (4.7-12.5) % Eos % (Auto) (0.7-5.8) Baso % (Auto) (0.1-1.2) % Neut # (Auto) (1.56-6.13) K/mm3 Lymph # (Auto) (1.18-3.74) K/mm3 [place] # (Auto) (0.24-0.36) K/mm3 Eos # (Auto) (0.04-0.36) K/mm3 Baso # (Auto) (0.01-0.08) K/mm3 Manual Slide Review Sodium 135 L (136-145) mEq/L Potassium 4.4 (3.5-5.1) mEq/L Chloride 101 (98-107) mEq/L Carbon Dioxide 24 (21-32) mEq/L Anion Gap 14.4 (5-15) BUN 32 H (7-18) mg/dL Creatinine 0.9 (0.55-1.02) mg/dL Est Cr Clr Drug Dosing 45.89 mL/min Estimated GFR (MDRD) > 60 (>60) mL/min BUN/Creatinine Ratio 35.6 H (14-18) Glucose 137 H (83-115) mg/dL Calcium 8.5 (8.5-10.1) mg/dL Total Bilirubin 0.2 (0.2-1.0) mg/dL AST 12 L (15-37) U/L ALT 22 (14-59) U/L Alkaline Phosphatase 68 (46-116) U/L C-Reactive Protein 2.6 H* (<1.0) mg/dL Total Protein 6.6 (6.4-8.2) g/dl Albumin 3.1 L (3.4-5.0) g/dl Globulin 3.5 gm/dL Albumin/Globulin Ratio 0.9 L (1-2) Adenovirus (PCR) (Not Detected) B. pertussis DNA (PCR) (Not Detected) B.parapertussis DNA PCR (Not Detected) C. pneumoniae DNA (PCR) (Not Detected) Coronavirus (PCR) (Not Detected) Human Metapneumovir PCR (Not Detected) Influenza A (RT-PCR) (Not Detected) Influenza B (RT-PCR) (Not Detected) M. pneumoniae (PCR) (Not Detected) Parainfluen 1,2,3,4 PCR (Not Detected) RSV (PCR) (Not Detected) Entero/Rhino (PCR) (Not Detected) Michael Results Last 24 Hours: Microbiology 09/28/18 04:00 Aerobic Blood Culture - Preliminary Blood - Venous - Lab Draw NO GROWTH AFTER 2 DAYS Anaerobic Blood Culture - Preliminary NO GROWTH AFTER 2 DAYS 09/28/18 03:50 Aerobic Blood Culture - Preliminary Blood - Venous NO GROWTH AFTER 2 DAYS Anaerobic Blood Culture - Preliminary NO GROWTH AFTER 2 DAYS Med Orders - Current: Current Medications Albuterol (Proventil Neb Soln) 2.5 mg NEB Q4HRRT PRN PRN Reason: Shortness of Breath Albuterol (Proventil Hfa) 0 gm INH Q4H PRN PRN Reason: Shortness of Breath Albuterol/Ipratropium (Duoneb 3.0-0.5 Mg/3 Ml) 3 ml NEB Q6HRRT [facility] Last Admin: 09/30/18 03:25 Dose: Not Given Aspirin (Halfprin) 81 mg PO DAILY [facility] Last Admin: 09/30/18 09:12 Dose: 81 mg Azithromycin (Zithromax) 250 mg PO Q24H [facility] Last Admin: 09/29/18 15:49 Dose: 250 mg Benzonatate (Tessalon Perles) 100 mg PO TID [facility] Last Admin: 09/30/18 09:14 Dose: 100 mg Bupropion HCl (Wellbutrin Xl) 150 mg PO DAILY [facility] Last Admin: 09/30/18 09:15 Dose: 150 mg Guaifenesin/Codeine Phosphate (Robitussin Ac) 5 ml PO Q4H PRN PRN Reason: Cough Hydrochlorothiazide (Hydrochlorothiazide) 25 mg PO DAILY [facility] Last Admin: 09/30/18 09:13 Dose: 25 mg Ceftriaxone Sodium 1 gm/ (Sodium Chloride) 100 mls @ 200 mls/hr IV Q24H [facility] Last Admin: 09/30/18 05:24 Dose: 200 mls/hr Lisinopril (Prinivil) 10 mg PO DAILY [facility] Last Admin: 09/30/18 09:14 Dose: 10 mg Methylprednisolone Sodium Succinate (Solu-Medrol) 40 mg IVPUSH Q6H [facility] Last Admin: 09/30/18 09:14 Dose: 40 mg Pantoprazole Sodium (Protonix) 40 mg PO ACBREAKFAST [facility] Last Admin: 09/30/18 05:24 Dose: 40 mg Morphine Pain Pump * ( Patients Own Med) 0 each .XX ASDIRECTED [facility] Pramipexole Dihydrochloride (Mirapex) 0.5 mg PO BEDTIME [facility] Last Admin: 09/29/18 21:26 Dose: 0.5 mg Psyllium Husk (Metamucil Sugar Free) 1 packet PO BID [facility] Last Admin: 09/30/18 09:13 Dose: Not Given Rosuvastatin Calcium (Crestor) 40 mg PO BEDTIME [facility] Last Admin: 09/29/18 21:26 Dose: 40 mg Sodium Chloride (Saline Flush) 10 ml FLUSH ASDIRECTED PRN PRN Reason: Keep Vein Open Zolpidem Tartrate (Ambien) 10 mg PO ONETIME PRN PRN Reason: Insomnia Last Admin: 09/28/18 20:15 Dose: 10 mg Discontinued Medications Albuterol/Ipratropium (Duoneb 3.0-0.5 Mg/3 Ml) 3 ml NEB ONETIME ONE Stop: 09/28/18 03:29 Last Admin: 09/28/18 03:38 Dose: 3 ml Albuterol/Ipratropium (Duoneb 3.0-0.5 Mg/3 Ml) 3 ml NEB ONETIME ONE Stop: 09/28/18 05:58 Last Admin: 09/28/18 06:03 Dose: 3 ml Azithromycin (Zithromax) 500 mg PO DAILY [facility] Stop: 09/28/18 13:46 Last Admin: 09/28/18 15:19 Dose: 500 mg Bupropion HCl (Wellbutrin Xl) 150 mg PO DAILY [facility] Last Admin: 09/28/18 15:19 Dose: 150 mg Ceftriaxone Sodium (Rocephin) 1 gm IVPUSH Q24H [facility] Last Admin: 09/28/18 10:16 Dose: Not Given Magnesium Sulfate 2 gm/ Premix 50 mls @ 25 mls/hr IV ONETIME ONE Stop: 09/28/18 05:28 Last Admin: 09/28/18 03:54 Dose: 25 mls/hr Ceftriaxone Sodium 2 gm/ (Sodium Chloride) 100 mls @ 200 mls/hr IV ONETIME ONE Stop: 09/28/18 03:59 Last Admin: 09/28/18 05:55 Dose: 200 mls/hr Ceftriaxone Sodium 1 gm/ (Sodium Chloride) 100 mls @ 200 mls/hr IV Q24H [facility] Temazepam (Restoril) 15 mg PO ONETIME ONE Stop: 09/29/18 21:12 Last Admin: 09/29/18 21:26 Dose: 15 mg - Exam Quality Assessment: No: Supplemental Oxygen General: Alert, Oriented HEENT: Pupils Equal Neck: Supple Lungs: Rhonchi, Wheezing Cardiovascular: Regular Rate, Regular Rhythm GI/Abdominal Exam: Normal Bowel Sounds, Soft, Non-Tender, No Distention Skin: Warm, Dry - Problem List & Annotations (1) Pneumonia SNOMED Code(s): 697060871 Code(s): J18.9 - PNEUMONIA, UNSPECIFIED ORGANISM Status: Acute Current Visit: Yes Qualifiers: Pneumonia type: due to unspecified organism Laterality: right Lung location: middle lobe of lung Qualified Code(s): J18.1 - Lobar pneumonia, unspecified organism (2) COPD (chronic obstructive pulmonary disease) SNOMED Code(s): 59430398 Code(s): J44.9 - CHRONIC OBSTRUCTIVE PULMONARY DISEASE, UNSPECIFIED Status : Acute Current Visit: Yes Qualifiers: COPD type: unspecified COPD Qualified Code(s): J44.9 - Chronic obstructive pulmonary disease, unspecified (3) Hypoxia SNOMED Code(s): 879103151 Code(s): R09.02 - HYPOXEMIA Status: Acute Current Visit: Yes (4) Chronic back pain SNOMED Code(s): 761092445 Code(s): M54.9 - DORSALGIA, UNSPECIFIED; G89.29 - OTHER CHRONIC PAIN Status : Chronic Priority: Medium Current Visit: No Onset Date: 08/22/15 Annotation/Comment:: Stable (5) Hypertension SNOMED Code(s): 58656314 Code(s): I10 - ESSENTIAL (PRIMARY) HYPERTENSION Status: Chronic Priority : Medium Current Visit: No Onset Date: 08/22/15 Qualifiers: Hypertension type: essential hypertension Qualified Code(s): I10 - Essential (primary) hypertension Annotation/Comment:: With variation BP meds were adjusted - Problem List Review Problem List Initiated/Reviewed/Updated: Yes - My Orders Last 24 Hours: My Active Orders 09/29/18 09:00 Aspirin [Halfprin] 81 mg PO DAILY buPROPion [Wellbutrin XL] 150 mg PO DAILY 09/29/18 10:35 OT Evaluation and Treatment [CONS] Routine PT Evaluation and Treatment [CONS] Routine 09/29/18 15:00 Azithromycin [Zithromax] 250 mg PO Q24H 09/30/18 07:28 Codeine/guaiFENesin [Robitussin AC] 5 ml PO Q4H PRN 09/30/18 09:00 Benzonatate [Tessalon Perles] 100 mg PO TID 10/01/18 05:11 C-REACTIVE PROTEIN [CHEM] AM CBC WITH AUTO DIFF [HEME] AM - Plan Plan:: Right lower lobe pneumonia * Rhinovirus positive * Missed 0300 breathing treatment. Will get PRN dose this morning. * Continue Rocephin 1 g IV every 24 hours next dose. * Continue azithromycin 250 mg a day 4 days. * WBC increased just slightly, but is likely due to steroids * Recheck CBC in the morning. * Repeat CXR this am showed no new findings. Hypoxia * Resolved COPD * Encourage smoking cessation. * Albuterol nebulizer every 4 hours when necessary. * DuoNeb nebs every 6 hours. * Continue Solu-Medrol 40 mg every 6 hours. * Incentive spirometry and flutter value at bedside. Pt. will alternate Q1 hour Hypertension * Continue home meds. Consult PT/OT. Pt. understands that she will do better the more active she is. Stress ulcer prophylaxis with Protonix 40 mg a day given her history of GI bleed. VTE prophylaxis will be with SCDs. I discussed the benefit of venous thromboembolism prevention versus the risk bleeding with anticoagulation. Patient would prefer mechanical device over anticoagulation. CODE STATUS: DO NOT INTUBATE, DO NOT RESUSCITATE Discharge planning: Expect discharge tomorrow. Chronic medical problems include chronic low back pain, hypertension, hyperlipidemia, GERD. All stable
[2018-09-30] MEDS: Albuterol 0.083% 2.5 MG/3 ML Neb Soln NEB PRN ×2 (09:42→11:55)
[2018-09-30] MEDS: Azithromycin 250 MG Tab PO SCH (15:10)
[2018-09-30] MEDS ORDERED: Temazepam 15 MG Cap PO PRN (20:28)
[2018-09-30] MEDS: Pramipexole 0.5 MG Tab PO SCH (20:41)
[2018-09-30] MEDS: Rosuvastatin 10 MG Tab PO SCH (20:42)
[2018-10-01] MEDS: methylPREDNISolone Sodium Succinate 40 MG/1 ML SDV IVPUSH SCH ×4 (02:26→20:09)
[2018-10-01] MEDS: Albuterol/Ipratropium 3.0-0.5 MG/3 ML Neb Soln NEB SCH ×4 (03:02→20:36)
[2018-10-01] MEDS: cefTRIAXone 1 GM in Sodium Chloride 0.9% 100 ML IV SCH (05:37)
[2018-10-01] MEDS: Pantoprazole 40 MG Tab.CR PO SCH (05:39)
[2018-10-01] MEDS: Lisinopril 10 MG Tab PO SCH (08:31)
[2018-10-01] MEDS: buPROPion 150 MG Tab.ER PO SCH (08:31)
[2018-10-01] MEDS: Aspirin 81 MG Tab.EC PO SCH (08:31)
[2018-10-01] MEDS: Hydrochlorothiazide 25 MG Tab PO SCH (08:31)
[2018-10-01] MEDS: Benzonatate 100 MG Cap PO SCH ×3 (08:31→20:08)
[2018-10-01] MEDS: Psyllium Husk Powder Sugar Free 3.4 GM Packet PO SCH ×2 (08:31→20:07)
--- NOTE | 2018-10-01 13:09 | PCM.PN ---
- General Info Date of Service: 10/01/18 Admission Dx/Problem (Free Text): Admission Diagnosis/Problem Admission Diagnosis/Problem Pneumonia Subjective Update: October 01, 2018 Patient is back on oxygen this morning. Generally she is feeling better, but she is slow to recover in the mornings. She is still coughing and does occasionally get productive sputum. She has been afebrile and walking the halls with help. 09/30/2018 Patient continues to improve symptomatically, but appears more wheezy this morning per RT. He viral panel came back positive for Rhinovirus. She missed the 0300 breathing treatment, which could account for the worsening signs this AM. She is currently off O2, but RT wants to put her back on for comfort. Cough is still a significant issue. She denies any fever or chills. 09/29/2018 Patient states that she is improving. She was admitted yesterday, September 28, 2018 , and started on Rocephin, azithromycin, and Solu-Medrol. Oxygen requirement has dropped from 2 L to 1 L. She denies any fevers overnight and is generally feeling better. She continues to have cough that is productive without shortness of breath. Functional Status: Reports: Pain Controlled - Review of Systems General: Denies: Fever, Weakness, Fatigue HEENT: Reports: No Symptoms Pulmonary: Reports: Shortness of Breath, Cough, Sputum Cardiovascular: Reports: No Symptoms. Denies: Chest Pain, Palpitations Gastrointestinal: Reports: No Symptoms. Denies: Abdominal Pain, Constipation Psychiatric: Reports: No Symptoms. Denies: Confusion - Patient Data Vitals - Most Recent: Last Vital Signs Temp 98.1 F 10/01/18 08:15 Pulse 72 10/01/18 08:15 Resp 14 10/01/18 08:15 BP 147/84 H 10/01/18 08:31 Pulse Ox 93 L 10/01/18 08:15 Weight - Most Recent: 185 lb 11.2 oz I&O - Last 24 Hours: Intake & Output 09/30/18 10/01/18 10/01/18 22:59 06:59 14:59 Intake Total 1120 580 180 Output Total 1700 Balance 1120 -1120 180 Lab Results Last 24 Hours: Laboratory Results - last 24 hr 10/01/18 10/01/18 Range/Units 06:00 06:00 WBC 8.75 (3.98-10.04) K/mm3 RBC 3.81 L (3.98-5.22) M/mm3 Hgb 11.3 (11.2-15.7) gm/L Hct 34.5 (34.1-44.9) % MCV 90.6 (79.4-94.8) fl MCH 29.7 (25.6-32.2) pg MCHC 32.8 (32.2-35.5) g/dl RDW Std Deviation 41.9 (36.4-46.3) fL Plt Count 238 (182-369) K/mm3 MPV 9.7 (9.4-12.3) fl Neut % (Auto) 89.2 H (34.0-71.1) % Lymph % (Auto) 7.4 L (19.3-51.7) % [place] % (Auto) 2.7 L (4.7-12.5) % Eos % (Auto) 0 L (0.7-5.8) Baso % (Auto) 0.0 L (0.1-1.2) % Neut # (Auto) 7.80 H (1.56-6.13) K/mm3 Lymph # (Auto) 0.65 L (1.18-3.74) K/mm3 [place] # (Auto) 0.24 (0.24-0.36) K/mm3 Eos # (Auto) 0.00 L (0.04-0.36) K/mm3 Baso # (Auto) 0.00 L (0.01-0.08) K/mm3 Manual Slide Review Abnormal smear C-Reactive Protein 1.1 H* (<1.0) mg/dL Michael Results Last 24 Hours: Microbiology 09/28/18 04:00 Aerobic Blood Culture - Preliminary Blood - Venous - Lab Draw NO GROWTH AFTER 3 DAYS Anaerobic Blood Culture - Preliminary NO GROWTH AFTER 3 DAYS 09/28/18 03:50 Aerobic Blood Culture - Preliminary Blood - Venous NO GROWTH AFTER 3 DAYS Anaerobic Blood Culture - Preliminary NO GROWTH AFTER 3 DAYS Med Orders - Current: Current Medications Albuterol (Proventil Neb Soln) 2.5 mg NEB Q4HRRT PRN PRN Reason: Shortness of Breath Last Admin: 09/30/18 11:55 Dose: 2.5 mg Albuterol (Proventil Hfa) 0 gm INH Q4H PRN PRN Reason: Shortness of Breath Albuterol/Ipratropium (Duoneb 3.0-0.5 Mg/3 Ml) 3 ml NEB Q6HRRT [facility] Last Admin: 10/01/18 08:10 Dose: 3 ml Aspirin (Halfprin) 81 mg PO DAILY [facility] Last Admin: 10/01/18 08:31 Dose: 81 mg Azithromycin (Zithromax) 250 mg PO Q24H [facility] Last Admin: 09/30/18 15:10 Dose: 250 mg Benzonatate (Tessalon Perles) 100 mg PO TID [facility] Last Admin: 10/01/18 08:31 Dose: 100 mg Bupropion HCl (Wellbutrin Xl) 150 mg PO DAILY [facility] Last Admin: 10/01/18 08:31 Dose: 150 mg Guaifenesin/Codeine Phosphate (Robitussin Ac) 5 ml PO Q4H PRN PRN Reason: Cough Hydrochlorothiazide (Hydrochlorothiazide) 25 mg PO DAILY [facility] Last Admin: 10/01/18 08:31 Dose: 25 mg Ceftriaxone Sodium 1 gm/ (Sodium Chloride) 100 mls @ 200 mls/hr IV Q24H [facility] Last Admin: 10/01/18 05:37 Dose: 200 mls/hr Lisinopril (Prinivil) 10 mg PO DAILY [facility] Last Admin: 10/01/18 08:31 Dose: 10 mg Methylprednisolone Sodium Succinate (Solu-Medrol) 40 mg IVPUSH Q6H [facility] Last Admin: 10/01/18 08:32 Dose: 40 mg Pantoprazole Sodium (Protonix) 40 mg PO ACBREAKFAST [facility] Last Admin: 10/01/18 05:39 Dose: 40 mg Morphine Pain Pump * ( Patients Own Med) 0 each .XX ASDIRECTED [facility] Pramipexole Dihydrochloride (Mirapex) 0.5 mg PO BEDTIME [facility] Last Admin: 09/30/18 20:41 Dose: 0.5 mg Psyllium Husk (Metamucil Sugar Free) 1 packet PO BID [facility] Last Admin: 10/01/18 08:31 Dose: Not Given Rosuvastatin Calcium (Crestor) 40 mg PO BEDTIME [facility] Last Admin: 09/30/18 20:42 Dose: 40 mg Sodium Chloride (Saline Flush) 10 ml FLUSH ASDIRECTED PRN PRN Reason: Keep Vein Open Temazepam (Restoril) 15 mg PO BEDTIME PRN PRN Reason: Sleep Last Admin: 09/30/18 20:42 Dose: 15 mg Zolpidem Tartrate (Ambien) 10 mg PO ONETIME PRN PRN Reason: Insomnia Last Admin: 09/28/18 20:15 Dose: 10 mg Discontinued Medications Albuterol/Ipratropium (Duoneb 3.0-0.5 Mg/3 Ml) 3 ml NEB ONETIME ONE Stop: 09/28/18 03:29 Last Admin: 09/28/18 03:38 Dose: 3 ml Albuterol/Ipratropium (Duoneb 3.0-0.5 Mg/3 Ml) 3 ml NEB ONETIME ONE Stop: 09/28/18 05:58 Last Admin: 09/28/18 06:03 Dose: 3 ml Azithromycin (Zithromax) 500 mg PO DAILY [facility] Stop: 09/28/18 13:46 Last Admin: 09/28/18 15:19 Dose: 500 mg Bupropion HCl (Wellbutrin Xl) 150 mg PO DAILY [facility] Last Admin: 09/28/18 15:19 Dose: 150 mg Ceftriaxone Sodium (Rocephin) 1 gm IVPUSH Q24H [facility] Last Admin: 09/28/18 10:16 Dose: Not Given Magnesium Sulfate 2 gm/ Premix 50 mls @ 25 mls/hr IV ONETIME ONE Stop: 09/28/18 05:28 Last Admin: 09/28/18 03:54 Dose: 25 mls/hr Ceftriaxone Sodium 2 gm/ (Sodium Chloride) 100 mls @ 200 mls/hr IV ONETIME ONE Stop: 09/28/18 03:59 Last Admin: 09/28/18 05:55 Dose: 200 mls/hr Ceftriaxone Sodium 1 gm/ (Sodium Chloride) 100 mls @ 200 mls/hr IV Q24H [facility] Temazepam (Restoril) 15 mg PO ONETIME ONE Stop: 09/29/18 21:12 Last Admin: 09/29/18 21:26 Dose: 15 mg - Exam Quality Assessment: Supplemental Oxygen General: Alert, Moderate Distress Neck: Supple Lungs: Normal Respiratory Effort, Rhonchi, Wheezing Cardiovascular: Regular Rate, Regular Rhythm GI/Abdominal Exam: Normal Bowel Sounds, Soft, Non-Tender, No Distention Extremities: Normal Inspection, Normal Range of Motion, Non-Tender, No Pedal Edema Skin: Warm, Dry, Intact Psy/Mental Status: Alert, Normal Affect, Normal Mood - Problem List & Annotations (1) Pneumonia SNOMED Code(s): 695404417 Code(s): J18.9 - PNEUMONIA, UNSPECIFIED ORGANISM Status: Acute Current Visit: Yes Qualifiers: Pneumonia type: due to unspecified organism Laterality: right Lung location: middle lobe of lung Qualified Code(s): J18.1 - Lobar pneumonia, unspecified organism (2) COPD (chronic obstructive pulmonary disease) SNOMED Code(s): 88743051 Code(s): J44.9 - CHRONIC OBSTRUCTIVE PULMONARY DISEASE, UNSPECIFIED Status : Acute Current Visit: Yes Qualifiers: COPD type: unspecified COPD Qualified Code(s): J44.9 - Chronic obstructive pulmonary disease, unspecified (3) Hypoxia SNOMED Code(s): 002034881 Code(s): R09.02 - HYPOXEMIA Status: Acute Current Visit: Yes (4) Chronic back pain SNOMED Code(s): 230335725 Code(s): M54.9 - DORSALGIA, UNSPECIFIED; G89.29 - OTHER CHRONIC PAIN Status : Chronic Priority: Medium Current Visit: No Onset Date: 08/22/15 Annotation/Comment:: Stable (5) Hypertension SNOMED Code(s): 22928641 Code(s): I10 - ESSENTIAL (PRIMARY) HYPERTENSION Status: Chronic Priority : Medium Current Visit: No Onset Date: 08/22/15 Qualifiers: Hypertension type: essential hypertension Qualified Code(s): I10 - Essential (primary) hypertension Annotation/Comment:: With variation BP meds were adjusted - Problem List Review Problem List Initiated/Reviewed/Updated: Yes - My Orders Last 24 Hours: My Active Orders 09/30/18 20:28 Temazepam [Restoril] 15 mg PO BEDTIME PRN 10/01/18 10:50 Evaluate for Home Oxygen [RT Evaluate for Home Oxygen] [RC] Click to Edit - Plan Plan:: Right lower lobe pneumonia * Rhinovirus positive * Improving, but needing O2 during ambulation and overnight. * Continue Rocephin 1 g IV every 24 hours next dose. * Continue azithromycin 250 mg a day 4 days. * WBC returned to normal * Encouraged incentive spirometry and flutter valve. Encouraged walking in the [place]. COPD * Encourage smoking cessation. * Albuterol nebulizer every 4 hours when necessary. * DuoNeb nebs every 6 hours. * Continue Solu-Medrol 40 mg every 6 hours. * Incentive spirometry and flutter value at bedside. Pt. will alternate every 30 minutes Hypertension * Continue home meds. Pt. understands that she will do better the more active she is. Stress ulcer prophylaxis with Protonix 40 mg a day given her history of GI bleed. VTE prophylaxis will be with SCDs. I discussed the benefit of venous thromboembolism prevention versus the risk bleeding with anticoagulation. Patient would prefer mechanical device over anticoagulation. CODE STATUS: DO NOT INTUBATE, DO NOT RESUSCITATE Discharge planning: If patient continues to improve she may be discharged this afternoon and if not tomorrow. She may need home O2. Chronic medical problems include chronic low back pain, hypertension, hyperlipidemia, GERD. All stable
[2018-10-01] MEDS: guaiFENesin 600 MG Tab.ER PO SCH ×2 (15:34→20:08)
[2018-10-01] MEDS: Azithromycin 250 MG Tab PO SCH (15:35)
[2018-10-01] MEDS ORDERED: Zolpidem 5 MG Tab PO PRN (17:57)
[2018-10-01] MEDS: Rosuvastatin 10 MG Tab PO SCH (20:05)
[2018-10-01] MEDS: Pramipexole 0.5 MG Tab PO SCH (20:07)
[2018-10-02] MEDS: Albuterol/Ipratropium 3.0-0.5 MG/3 ML Neb Soln NEB SCH ×3 (03:17→14:06)
[2018-10-02] MEDS: methylPREDNISolone Sodium Succinate 40 MG/1 ML SDV IVPUSH SCH ×3 (04:31→14:14)
[2018-10-02] MEDS: cefTRIAXone 1 GM in Sodium Chloride 0.9% 100 ML IV SCH (06:35)
[2018-10-02] MEDS: Pantoprazole 40 MG Tab.CR PO SCH (06:36)
[2018-10-02] MEDS: Aspirin 81 MG Tab.EC PO SCH (09:04)
[2018-10-02] MEDS: buPROPion 150 MG Tab.ER PO SCH (09:04)
[2018-10-02] MEDS: Benzonatate 100 MG Cap PO SCH ×2 (09:04→14:14)
[2018-10-02] MEDS: guaiFENesin 600 MG Tab.ER PO SCH (09:05)
[2018-10-02] MEDS: Lisinopril 10 MG Tab PO SCH (09:08)
[2018-10-02] MEDS: Hydrochlorothiazide 25 MG Tab PO SCH (09:08)
[2018-10-02] MEDS: Psyllium Husk Powder Sugar Free 3.4 GM Packet PO SCH (09:10)
--- NOTE | 2018-10-02 09:59 | PCM.DCSUM1 ---
Discharge Summary - Hospital Course HPI Initial Comments: Patient presented to the emergency room early this morning complaining of cough and shortness of breath. This patient with a history of COPD started developing a sore throat when flying home from [place] this last weekend. She had spent 2 weeks in [place] with an old friend. She states that on Thursday her ears felt plugged and her eyes felt plugged. Last night and early this morning she became increasingly short of breath and she presented to the emergency room. On arrival in the emergency room her oxygen saturations were 86% on room air and she required O2 via nasal cannula to keep her oxygen saturations above 90. Patient does state that she still smokes 1-3 cigarettes per day. She stopped and regionally in 1999 after 50 years of smoking half pack per day. She stated that if she made it to 82 years of age she would restart smoking because she enjoyed it so much. Patient denies any pain in her legs or edema. She has no history of DVT or pulmonary embolism. In 2013 she was admitted for pneumonia and put on prednisone. She had an upper GI bleed at that time. She was also on Plavix and possibly aspirin at the same time. She takes a baby aspirin now. She is on albuterol high flow nebs and duo nebs at home. In the emergency room she was given 2 treatments of albuterol with good results. Because she refused both by mouth and IV steroids she did not receive any steroids in the emergency room. She did get 2 g of Rocephin in the emergency room. Chest x-ray done in the emergency room was read by radiology as bronchial wall thickening within the right lower lung. Findings could be chronic if patient has no acute symptoms. Other portions of the portable chest x-ray showed nothing acute. Brief History: Patient did well without any complications during the hospital course. Tolerated steroids and bronchodiltators well. She was postive for Rhinovirus. We were unable to wean completely off O2, therefore she will go home on 2L at night and 3 L with ambulation. Diagnosis: Stroke: No - Discharge Data Discharge Date: 10/02/18 Discharge Disposition: Home, Self-Care 01 Condition: Good - Discharge Diagnosis/Problem(s) (1) Pneumonia SNOMED Code(s): 533949792 ICD Code: J18.9 - PNEUMONIA, UNSPECIFIED ORGANISM Status: Acute Current Visit: Yes Qualifiers: Pneumonia type: due to unspecified organism Laterality: right Lung location: middle lobe of lung Qualified Code(s): J18.1 - Lobar pneumonia, unspecified organism (2) COPD (chronic obstructive pulmonary disease) SNOMED Code(s): 33166385 ICD Code: J44.9 - CHRONIC OBSTRUCTIVE PULMONARY DISEASE, UNSPECIFIED Status : Acute Current Visit: Yes Qualifiers: COPD type: unspecified COPD Qualified Code(s): J44.9 - Chronic obstructive pulmonary disease, unspecified (3) Hypoxia SNOMED Code(s): 653817145 ICD Code: R09.02 - HYPOXEMIA Status: Acute Current Visit: Yes (4) Chronic back pain SNOMED Code(s): 913224305 ICD Code: M54.9 - DORSALGIA, UNSPECIFIED; G89.29 - OTHER CHRONIC PAIN Status: Chronic Priority: Medium Current Visit: No Onset Date: 08/22/15 Problem Details: Stable (5) Hypertension SNOMED Code(s): 99892853 ICD Code: I10 - ESSENTIAL (PRIMARY) HYPERTENSION Status: Chronic Priority : Medium Current Visit: No Onset Date: 08/22/15 Problem Details: With variation BP meds were adjusted Qualifiers: Hypertension type: essential hypertension Qualified Code(s): I10 - Essential (primary) hypertension - Patient Summary/Data Consults: Consultations 09/29/18 10:35 OT Evaluation and Treatment [CONS] Routine PT Evaluation and Treatment [CONS] Routine - Patient Instructions Diet: Heart Healthy Diet Activity: As Tolerated, Cough & Deep Breathe Driving: Do Not Drive Showering/Bathing: May Shower Notify Provider of: Fever Other/Special Instructions: Follow up with PCP next week. Portable and home oxygen is ordered. Do not smoke around oxygen. - Discharge Plan *PRESCRIPTION DRUG MONITORING PROGRAM REVIEWED*: Not Applicable *COPY OF PRESCRIPTION DRUG MONITORING REPORT IN PATIENT SANDY: Not Applicable Prescriptions/Med Rec: Albuterol [Proventil Neb Soln] 2.5 mg NEB Q4HRRT PRN #120 neb PRN Reason: Shortness Of Breath Albuterol/Ipratropium [DuoNeb 3.0-0.5 MG/3 ML] 3 ml NEB Q6HRRT #120 neb Benzonatate [Tessalon Perle] 100 mg PO TID PRN #30 capsule PRN Reason: Cough Codeine/guaiFENesin [Robitussin AC] 5 ml PO Q4H PRN #120 ml PRN Reason: Cough guaiFENesin [Mucinex] 600 mg PO BID #30 tab.er predniSONE [Prednisone] 50 mg PO QAM #1 tablet Home Medications: Home Meds Aspirin [Ecotrin] 81 mg PO DAILY 09/28/14 [History] Cevimeline [Evoxac] 30 mg PO BEDTIME 09/28/14 [History] Famotidine 20 mg PO DAILY 09/28/14 [History] Fenofibrate,Micronized [Fenofibrate] 134 mg PO DAILY 09/28/14 [History] Lisinopril 10 mg PO DAILY 09/28/14 [History] Lutein/Minerals/Vit A,C & E [Ocuvite] 1 tab PO BID 09/28/14 [History] Multivit-Min/FA/Lycopene/Lut [Centrum Silver] 1 tab PO DAILY 09/28/14 [History] [place]-3 Fatty Acids [[place]-3] 1,000 mg PO BID 09/28/14 [History] Pramipexole [Mirapex] 0.5 mg PO BEDTIME 09/28/14 [History] Psyllium with Sucrose [Metamucil] 1 packet PO BID 08/22/15 [History] Rosuvastatin Calcium 40 mg PO BEDTIME 01/11/18 [History] Zolpidem Tartrate 10 mg PO BEDTIME 01/11/18 [History] Albuterol Sulfate [Proair Hfa] 2 puff IH Q4HR PRN 09/28/18 [History] Celecoxib [CeleBREX] 200 mg PO DAILY 09/28/18 [History] Denosumab [Prolia] 1 ml SQ ASDIRECTED 09/28/18 [History] Morphine Pain Pump 1 applic IMPLANT ASDIRECTED 09/28/18 [History] buPROPion HCl [Wellbutrin Xl] 150 mg PO DAILY 09/28/18 [History] hydroCHLOROthiazide [Hydrochlorothiazide] 25 mg PO DAILY 09/28/18 [History] traMADol [Ultram] 50 mg PO BID PRN 09/28/18 [History] Albuterol [Proventil Neb Soln] 2.5 mg NEB Q4HRRT PRN #120 neb 10/02/18 [Rx] Albuterol/Ipratropium [DuoNeb 3.0-0.5 MG/3 ML] 3 ml NEB Q6HRRT #120 neb [Rx] Benzonatate [Tessalon Perle] 100 mg PO TID PRN #30 capsule 10/02/18 [Rx] Codeine/guaiFENesin [Robitussin AC] 5 ml PO Q4H PRN #120 ml 10/02/18 [Rx] guaiFENesin [Mucinex] 600 mg PO BID #30 tab.er 10/02/18 [Rx] predniSONE [Prednisone] 50 mg PO QAM #1 tablet 10/02/18 [Rx] Oxygen Flow Rate (L/min): 2 Patient Handouts: Steps to Quit Smoking, Community-Acquired Pneumonia, Adult Referrals: Monster Garcia MD [Primary Care Provider] - - Discharge Summary/Plan Comment DC Time >30 min.: Yes Discharge Summary/Plan Comment: Right lower lobe pneumonia * Discharge home today on 2 L NC O2 * Rhinovirus positive * Improving, but needing O2 during ambulation and overnight. * Finished 5 day course of antibiotics * WBC returned to normal * Encouraged incentive spirometry and flutter valve. COPD * Encourage smoking cessation. * Albuterol nebulizer every 4 hours when necessary. * DuoNeb nebs every 6 hours. * Prednisone 50 mg tomorrow. * Incentive spirometry and flutter value at bedside. Pt. will alternate every 30 minutes Hypertension * Continue home meds. Chronic medical problems include chronic low back pain, hypertension, hyperlipidemia, GERD, CAD - General Info Date of Service: 10/02/18 Admission Dx/Problem (Free Text: Admission Diagnosis/Problem Admission Diagnosis/Problem Pneumonia Subjective Update: October 02, 2018 Continued improvement over the last 24 hours. Pt. feels strong enough to go home today. She has severe emphysema on CT scan from 2017. She will go home on O2 and one day of prednisone. No fever. October 01, 2018 Patient is back on oxygen this morning. Generally she is feeling better, but she is slow to recover in the mornings. She is still coughing and does occasionally get productive sputum. She has been afebrile and walking the halls with help. 09/30/2018 Patient continues to improve symptomatically, but appears more wheezy this morning per RT. He viral panel came back positive for Rhinovirus. She missed the 0300 breathing treatment, which could account for the worsening signs this AM. She is currently off O2, but RT wants to put her back on for comfort. Cough is still a significant issue. She denies any fever or chills. 09/29/2018 Patient states that she is improving. She was admitted yesterday, September 28, 2018 , and started on Rocephin, azithromycin, and Solu-Medrol. Oxygen requirement has dropped from 2 L to 1 L. She denies any fevers overnight and is generally feeling better. She continues to have cough that is productive without shortness of breath. Functional Status: Reports: Pain Controlled - Review of Systems General: Reports: No Symptoms. Denies: Fever, Weakness HEENT: Reports: No Symptoms, Sore Throat Pulmonary: Reports: Cough, Wheezing. Denies: Shortness of Breath Cardiovascular: Reports: No Symptoms. Denies: Chest Pain, Palpitations Gastrointestinal: Reports: No Symptoms. Denies: Abdominal Pain, Constipation Musculoskeletal: Reports: Back Pain Skin: Reports: No Symptoms - Patient Data Vitals - Most Recent: Last Vital Signs Temp 98.2 F 10/02/18 04:29 Pulse 84 10/02/18 04:29 Resp 14 10/02/18 04:29 BP 157/52 H 10/02/18 09:08 Pulse Ox 93 L 10/02/18 08:25 Weight - Most Recent: 184 lb 4.8 oz I&O - Last 24 hours: Intake & Output 10/01/18 10/02/18 10/02/18 22:59 06:59 14:59 Intake Total 1680 200 100 Output Total 1600 1750 Balance 80 -1550 100 DIXIE Results - Last 24 hrs: Microbiology 09/28/18 04:00 Aerobic Blood Culture - Preliminary Blood - Venous - Lab Draw NO GROWTH AFTER 4 DAYS Anaerobic Blood Culture - Preliminary NO GROWTH AFTER 4 DAYS 09/28/18 03:50 Aerobic Blood Culture - Preliminary Blood - Venous NO GROWTH AFTER 4 DAYS Anaerobic Blood Culture - Preliminary NO GROWTH AFTER 4 DAYS Med Orders - Current: Current Medications Albuterol (Proventil Neb Soln) 2.5 mg NEB Q4HRRT PRN PRN Reason: Shortness of Breath Last Admin: 09/30/18 11:55 Dose: 2.5 mg Albuterol (Proventil Hfa) 0 gm INH Q4H PRN PRN Reason: Shortness of Breath Albuterol/Ipratropium (Duoneb 3.0-0.5 Mg/3 Ml) 3 ml NEB Q6HRRT [facility] Last Admin: 10/02/18 08:25 Dose: 3 ml Aspirin (Halfprin) 81 mg PO DAILY [facility] Last Admin: 10/02/18 09:04 Dose: 81 mg Azithromycin (Zithromax) 250 mg PO Q24H [facility] Last Admin: 10/01/18 15:35 Dose: 250 mg Benzonatate (Tessalon Perles) 100 mg PO TID [facility] Last Admin: 10/02/18 09:04 Dose: 100 mg Bupropion HCl (Wellbutrin Xl) 150 mg PO DAILY [facility] Last Admin: 10/02/18 09:04 Dose: 150 mg Guaifenesin (Mucinex) 600 mg PO BID [facility] Last Admin: 10/02/18 09:05 Dose: 600 mg Guaifenesin/Codeine Phosphate (Robitussin Ac) 5 ml PO Q4H PRN PRN Reason: Cough Hydrochlorothiazide (Hydrochlorothiazide) 25 mg PO DAILY [facility] Last Admin: 10/02/18 09:08 Dose: 25 mg Ceftriaxone Sodium 1 gm/ (Sodium Chloride) 100 mls @ 200 mls/hr IV Q24H [facility] Last Admin: 10/02/18 06:35 Dose: 200 mls/hr Lisinopril (Prinivil) 10 mg PO DAILY [facility] Last Admin: 10/02/18 09:08 Dose: 10 mg Methylprednisolone Sodium Succinate (Solu-Medrol) 40 mg IVPUSH Q6H [facility] Last Admin: 10/02/18 09:03 Dose: 40 mg Pantoprazole Sodium (Protonix) 40 mg PO ACBREAKFAST [facility] Last Admin: 10/02/18 06:36 Dose: 40 mg Morphine Pain Pump * ( Patients Own Med) 0 each .XX ASDIRECTED [facility] Pramipexole Dihydrochloride (Mirapex) 0.5 mg PO BEDTIME [facility] Last Admin: 10/01/18 20:07 Dose: 0.5 mg Psyllium Husk (Metamucil Sugar Free) 1 packet PO BID [facility] Last Admin: 10/02/18 09:10 Dose: Not Given Rosuvastatin Calcium (Crestor) 40 mg PO BEDTIME [facility] Last Admin: 10/01/18 20:05 Dose: 40 mg Sodium Chloride (Saline Flush) 10 ml FLUSH ASDIRECTED PRN PRN Reason: Keep Vein Open Temazepam (Restoril) 15 mg PO BEDTIME PRN PRN Reason: Sleep Last Admin: 09/30/18 20:42 Dose: 15 mg Zolpidem Tartrate (Ambien) 5 mg PO BEDTIME PRN PRN Reason: Insomnia Discontinued Medications Albuterol/Ipratropium (Duoneb 3.0-0.5 Mg/3 Ml) 3 ml NEB ONETIME ONE Stop: 09/28/18 03:29 Last Admin: 09/28/18 03:38 Dose: 3 ml Albuterol/Ipratropium (Duoneb 3.0-0.5 Mg/3 Ml) 3 ml NEB ONETIME ONE Stop: 09/28/18 05:58 Last Admin: 09/28/18 06:03 Dose: 3 ml Azithromycin (Zithromax) 500 mg PO DAILY [facility] Stop: 09/28/18 13:46 Last Admin: 09/28/18 15:19 Dose: 500 mg Bupropion HCl (Wellbutrin Xl) 150 mg PO DAILY [facility] Last Admin: 09/28/18 15:19 Dose: 150 mg Ceftriaxone Sodium (Rocephin) 1 gm IVPUSH Q24H [facility] Last Admin: 09/28/18 10:16 Dose: Not Given Magnesium Sulfate 2 gm/ Premix 50 mls @ 25 mls/hr IV ONETIME ONE Stop: 09/28/18 05:28 Last Admin: 09/28/18 03:54 Dose: 25 mls/hr Ceftriaxone Sodium 2 gm/ (Sodium Chloride) 100 mls @ 200 mls/hr IV ONETIME ONE Stop: 09/28/18 03:59 Last Admin: 09/28/18 05:55 Dose: 200 mls/hr Ceftriaxone Sodium 1 gm/ (Sodium Chloride) 100 mls @ 200 mls/hr IV Q24H [facility] Temazepam (Restoril) 15 mg PO ONETIME ONE Stop: 09/29/18 21:12 Last Admin: 09/29/18 21:26 Dose: 15 mg Zolpidem Tartrate (Ambien) 10 mg PO ONETIME PRN PRN Reason: Insomnia Last Admin: 09/28/18 20:15 Dose: 10 mg - Exam Quality Assessment: Reports: Supplemental Oxygen General: Reports: Alert, Oriented HEENT: Reports: Pupils Equal, Pupils Reactive Neck: Reports: Supple Lungs: Reports: Normal Respiratory Effort, Wheezing Cardiovascular: Reports: Regular Rate, Regular Rhythm GI/Abdominal Exam: Normal Bowel Sounds, Soft, Non-Tender, No Distention Extremities: Normal Inspection, Normal Range of Motion, Non-Tender, No Pedal Edema Skin: Reports: Warm, Dry Psy/Mental Status: Reports: Alert, Normal Affect, Normal Mood
[2018-10-02 12:28] VITALS: BP 136/58
[2018-10-02] MEDS: Azithromycin 250 MG Tab PO SCH (14:14)
== END 2018-10-02 14:30 | disposition home or self-care (01) | DRG 190 ==
LOC: JD.ED 03:10 → JD.MS 07:19
PROVIDERS: ADMIT Family Medicine; ATTEND Family Medicine
DX: J44.0 Chronic obstructive pulmonary disease with (acute) lower respiratory infection (principal); J18.1 Lobar pneumonia, unspecified organism; R09.02 Hypoxemia; F17.210 Nicotine dependence, cigarettes, uncomplicated; E78.00 Pure hypercholesterolemia, unspecified; I10 Essential (primary) hypertension; K21.9 Gastro-esophageal reflux disease without esophagitis; K29.70 Gastritis, unspecified, without bleeding; M19.91 Primary osteoarthritis, unspecified site; B97.89 Other viral agents as the cause of diseases classified elsewhere; M54.9 Dorsalgia, unspecified; G89.29 Other chronic pain; H54.7 Unspecified visual loss; I25.10 Atherosclerotic heart disease of native coronary artery without angina pectoris; Z85.820 Personal history of malignant melanoma of skin; Z86.73 Personal history of transient ischemic attack (TIA), and cerebral infarction without residual deficits; Z88.1 Allergy status to other antibiotic agents; Z88.8 Allergy status to other drugs, medicaments and biological substances; Z79.82 Long term (current) use of aspirin; Z79.899 Other long term (current) drug therapy; Z95.5 Presence of coronary angioplasty implant and graft; Z90.49 Acquired absence of other specified parts of digestive tract; Z98.1 Arthrodesis status; Z66 Do not resuscitate; R07.9 Chest pain, unspecified; R05 Cough; R06.2 Wheezing; R06.02 Shortness of breath; R50.9 Fever, unspecified
CPT/HCPCS: 36415; 36600; 71045; 80053; 83605; 83735; 85025; 87040 ×2; 87804 ×2; 94640 ×2; 96365; 96366; 96367; 99285; J0696; J3475; J7030; 82803; 84100; 86140; 87486; 87581; 87632; 87798; 94667; 94668; 94761; 97161-GP; 97165-GO; 99284; A9270-GY; J2920; J7620-GY

== ENCOUNTER 2018-10-06 09:35 | Emergency (ER) | payer MEDICARE, OTHER ==
[2018-10-06] MEDS ORDERED: Sodium Chloride 0.9% 10 ML Syringe FLUSH PRN ×2 (10:05→10:55)
[2018-10-06] MEDS ORDERED: Albuterol/Ipratropium 3.0-0.5 MG/3 ML Neb Soln NEB PRN (10:36)
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
[2018-10-06] MEDS ORDERED: Iopamidol 755 Mg/ML 200 ML Bottle IV ONE (10:55)
[2018-10-06] MEDS ORDERED: Diatrizoate Meglumine/Diatrizoate Sodium 37% 120 ML Bottle PO ONE (10:55)
[2018-10-06] MEDS ORDERED: Sodium Chloride 0.9% 100 ML IV SCH (12:30)
[2018-10-06] MEDS ORDERED: Sodium Chloride 0.9% 1,000 ML IV SCH (12:30)
--- NOTE | 2018-10-06 13:45 | CT ---
CT abdomen and pelvis Technique: Multiple axial sections were obtained from above the dome of the diaphragm inferiorly through the pubic symphysis. Intravenous and oral contrast has been given. Delayed images were obtained through the bladder. Comparison: No previous studies available. Findings: Partially visualized left breast prosthesis is incidentally noted. Visualized lung bases show nothing acute. Liver contains no focal abnormality. Spleen appears within normal limits. Adrenal glands show no discrete nodule. Kidneys show symmetric contrast enhancement. Two cysts are noted within the right kidney. Largest right-sided renal cyst measures 2.0 cm. Delayed images show contrast within the ureters as well as small amount of contrast within the bladder. Pancreas appears within normal limits. Gallbladder contains no calcified gallstones. Aorta shows an aneurysm which begins directly below the renal arteries and appears saccular in appearance having a maximal AP dimension 3.4 cm. Slightly more distal aneurysm is seen with AP dimension 3.5 cm. Distal aorta at its bifurcation into the iliac vessels is slightly aneurysmal at 2.7 cm. Common iliac arteries are normal in size. No retroperitoneal adenopathy or mesenteric abnormalities are seen. No pelvic mass or adenopathy is seen. Diverticuli are seen within the sigmoid colon as well as within the descending colon without evidence of diverticulitis. Mild increased stool seen throughout the colon. No pelvic mass or adenopathy is seen. No free fluid or inflammatory change is seen. Bone window settings were reviewed which show scoliosis and degenerative change within the spine. Previous laminectomy noted at L4-L5 and at L5-S1. Impression: 1. 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 Largest aneurysm has AP dimension of 3.5 cm. 2. Mild increased stool within the colon. 3. Other incidental findings. Diagnostic code #3
[2018-10-06 15:22] VITALS: BP 127/55
== END 2018-10-06 15:41 | disposition home or self-care (01) ==
LOC: JD.ED 09:35
DX: K59.09 Other constipation (principal); I10 Essential (primary) hypertension; E78.00 Pure hypercholesterolemia, unspecified; J44.9 Chronic obstructive pulmonary disease, unspecified; K21.9 Gastro-esophageal reflux disease without esophagitis; Z87.891 Personal history of nicotine dependence; Z86.73 Personal history of transient ischemic attack (TIA), and cerebral infarction without residual deficits; Z79.82 Long term (current) use of aspirin; Z79.899 Other long term (current) drug therapy; Z88.1 Allergy status to other antibiotic agents; Z88.8 Allergy status to other drugs, medicaments and biological substances
CPT/HCPCS: 36415; 74177; 80053; 83690; 85025; 94640; 96360; 99284; J7030; J7040; Q9963; Q9967; J7620-GY

== ENCOUNTER 2018-10-21 14:15 | Emergency (ER) | payer MEDICARE, OTHER ==
[2018-10-21] MEDS ORDERED: Sodium Chloride 0.9% 10 ML Syringe FLUSH PRN (14:23)
[2018-10-21 14:29] VITALS: BP 183/67
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
--- NOTE | 2018-10-21 17:16 | CR ---
Chest: Two views of the chest were obtained. Comparison: Prior chest x-ray of 09/30/18. Heart size is normal. Tortuous thoracic aorta is seen. Minimal discoid atelectasis within the lateral left costophrenic angle is seen. Lungs otherwise are clear. Incidental scoliosis is noted with the spine. Surgical clips are seen overlying the upper left chest. Impression: 1. Incidental findings. Nothing acute is seen. No change from previous study is seen. Diagnostic code #2
== END 2018-10-21 16:20 | disposition home or self-care (01) ==
LOC: JD.ED 14:15
DX: R07.89 Other chest pain (principal); I10 Essential (primary) hypertension; E78.00 Pure hypercholesterolemia, unspecified; J44.9 Chronic obstructive pulmonary disease, unspecified; K21.9 Gastro-esophageal reflux disease without esophagitis; Z86.73 Personal history of transient ischemic attack (TIA), and cerebral infarction without residual deficits; Z87.891 Personal history of nicotine dependence; Z79.82 Long term (current) use of aspirin; Z79.899 Other long term (current) drug therapy; Z88.1 Allergy status to other antibiotic agents; Z88.8 Allergy status to other drugs, medicaments and biological substances
CPT/HCPCS: 36415; 71046; 71046-26; 80053; 82553; 84484; 85025; 93005; 93010; 99284; 99285-25

== ENCOUNTER 2019-07-27 08:11 | Day surgery (SDC) | payer MEDICARE, OTHER ==
[~2019-07-27 08:11] MED LIST: Lactated Ringers 1,000 ML IV SCH; Lidocaine 1%/Sod Bicarbonate in NS 8.4% 1 ML Syringe IDERM PRN; Sodium Chloride 0.9% 10 ML Syringe FLUSH PRN
[2019-07-27] MEDS ORDERED: Propofol 200 MG/20 ML SDV ONE ×4 (08:20→10:14)
[2019-07-27] MEDS ORDERED: Lidocaine 1% 4 ML ONE (08:20)
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
--- NOTE | 2019-07-27 10:47 | PCM48HPAN ---
Post Anesthesia Note - EVALUATION WITHIN 48HRS OF ANESTHETIC Vital Signs in Normal Range: Yes Patient Participated in Evaluation: Yes Respiratory Function Stable: Yes Airway Patent: Yes Cardiovascular Function Stable: Yes Hydration Status Stable: Yes Pain Control Satisfactory: Yes Nausea and Vomiting Control Satisfactory: Yes Mental Status Recovered: Yes Vital Signs: Last Vital Signs Temp 36.7 C 07/27/19 08:20 Pulse 87 07/27/19 08:20 Resp 16 07/27/19 08:20 BP 124/85 07/27/19 08:20 Pulse Ox 96 07/27/19 08:20 - COMMENTS/OBSERVATIONS Free Text/Narrative:: no anesthesia complications noted
--- NOTE | 2019-07-27 10:49 | PCM.PRNOTE ---
- Free Text/Narrative Note: Operative Report Date of Surgery/Procedure: July 27, 2019 Operative Procedure: Colonoscopy to cecum with polypectomy Pre Op Diagnosis: Incompletely removed polyp (tubular adenoma) Post-Op Diagnosis: Same Surgeon: Татьяна Prince Anesthesia Technique: MAC Anesthesia Provider: Freddy Ferrer CRNA IV Fluid Replacement, Intraop: 1000cc Output, Urine Amount: 0cc EBL : 0c Findings: 1. Residual polyp in the cecum 2. Ascending colon polyp 3. Transverse colon polyp 4. Rectal polyp x 5 5. Diverticulosis Specimens: 1. Cecal polyp 2. Ascending colon polyp 3. Transverse colon polyp 5. Rectal polyp 5 Indication: The patient is a 84year-old lady who presented to the outpatient clinic for follow up therapeutic colonoscopy. The patient has a history of an incompletely resected tubular adenoma in the cecum. We discussed the procedure of a therapeutic colonoscopy including the polypectomy and biopsy. Risks of bleeding and perforation were discussed, the patient understood and wished to proceed. Written and consent was obtained Description of the procedure: The patient was brought to the endoscopy suite and placed in the left lateral decubitus position. Appropriate monitors were applied. The patient was given MAC anesthesia. An anorectal examination was performed, revealing no significant findings. The scope was placed into the rectum and advanced to cecum with moderate difficulty requiring external abdominal pressure and placement into supine position to reach the cecum and remove the cecal and ascending colon polyps. The patients cecum was entered, and the ileocecal valve and appendiceal orifice were identified and normal. At this point, the scope was withdrawn, paying careful attention to the mucosa. The patient had good bowel prep, allowing for visualization of 85-90% of the mucosa. The residual cecal polyp was noted, it was flat and 5mm in size. This was removed with a jumbo cold biopsy forceps. Another flat 5mm polyp was seen in the ascending colon and removed with jumbo cold biopsy forceps. A flat transverse colon polyp measuring 3mm was seen in the transverse colon and removed with jumbo cold biopsy forceps. There were multiple hyperplastic polyps in the rectum. There were five flat, 2-3mm, polyps in the rectum removed with a jumbo cold biopsy forceps. The remaining polyps were not resected for their benign appearance. In the rectum, the scope was retroflexed and no additional abnormalities were noted, except for some hemorrhoidal tissue. The scope was placed back in the lumen and the excess air was aspirated. The patient tolerated the procedure well. Complications: none apparent Condition: Good, transported to PACU in stable condition Татьяна Prince MD General Surgery
--- NOTE | 2019-07-27 10:50 | PCM.OPNOTE ---
- General Post-Op/Procedure Note Date of Surgery/Procedure: 07/27/19 Operative Procedure(s): Colonoscopy Findings: 1. Residual polyp in the cecum 2. Ascending colon polyp 3. Transverse colon polyp 4. Rectal polyp x 5 Pre Op Diagnosis: Incompletely resected polyp Post-Op Diagnosis: Same Anesthesia Technique: MAC Primary Surgeon: Татьяна Prince Anesthesia Provider: Freddy Ferrer Pathology: 1. Cecal polyp 2. Ascending colon polyp 3. Transverse colon polyp 5. Rectal polyp 5 Fluid Replacement, Intraop: 1,000 Output, Urine Amount: 0 EBL in mLs: 0 Complications: None apparent Condition: Good
[2019-07-27 11:21] VITALS: BP 172/58; PULSE 67
== END 2019-07-27 11:50 | disposition home or self-care (01) ==
LOC: JD.SDS 08:11
PROVIDERS: ATTEND Surgery
DX: D12.0 Benign neoplasm of cecum (principal); D12.2 Benign neoplasm of ascending colon; D12.3 Benign neoplasm of transverse colon; K62.1 Rectal polyp; K57.30 Diverticulosis of large intestine without perforation or abscess without bleeding; I10 Essential (primary) hypertension; E78.2 Mixed hyperlipidemia; I25.10 Atherosclerotic heart disease of native coronary artery without angina pectoris; K21.9 Gastro-esophageal reflux disease without esophagitis; J44.9 Chronic obstructive pulmonary disease, unspecified; G89.29 Other chronic pain; M54.9 Dorsalgia, unspecified; F32.9 Major depressive disorder, single episode, unspecified; M19.90 Unspecified osteoarthritis, unspecified site; F17.210 Nicotine dependence, cigarettes, uncomplicated; Z79.82 Long term (current) use of aspirin; Z79.1 Long term (current) use of non-steroidal anti-inflammatories (NSAID); Z79.51 Long term (current) use of inhaled steroids; Z79.899 Other long term (current) drug therapy; Z88.0 Allergy status to penicillin; Z88.8 Allergy status to other drugs, medicaments and biological substances; Z86.010 Personal history of colon polyps; Z95.5 Presence of coronary angioplasty implant and graft; Z86.73 Personal history of transient ischemic attack (TIA), and cerebral infarction without residual deficits; Z98.1 Arthrodesis status
CPT/HCPCS: 45380; J2001; J2704; J7120; 00811